=== PATIENT | male | born 1960 | race Caucasian/White ===

== ENCOUNTER 2019-11-02 15:49 | Emergency (ER) | payer OTHER, SELFPAY ==
[2019-11-02 15:54] VITALS: BP 105/57; PULSE 101; RESP 18; TEMP 37.1; O2SAT 98
--- NOTE | 2019-11-02 16:31 | ED.GENADULT ---
HPI - General Adult General Chief complaint: Wound/Laceration Stated complaint: WOUND TO ABD Time Seen by Provider: 11/02/19 16:51 Source: patient Mode of arrival: ambulatory Limitations: no limitations History of Present Illness HPI narrative: 59-year-old male patient presents to the [facility] with complaints of a wound to his right abdomen for the past 2 to 3 days. Patient states he thinks he might have gotten bitten by something. Patient states it started off as a small pimple and is gotten increasingly bigger. Patient states it is tender to the touch. Patient states he tried to open it himself and did get a little drainage out of it yesterday with some tweezers. Patient states he is also tried using a Coke bottle to make an vacuum to suck it out but it did not work. Patient denies any fevers, chest pain, shortness of breath or abdominal pain. Related Data Allergies Allergy/AdvReac Type Severity Reaction Status Date / Time No Known Allergies Allergy Mild Verified 09/22/10 08:23 Review of Systems Review of Systems: Narrative: CONSTITUTIONAL: Denies fever, chills, or sweats. EYES: Denies visual changes, redness, or discharge. ENT: Denies rhinorrhea, congestion, sore throat, or otalgia. CARDIOVASCULAR: Denies chest pain, palpitations, or edema. RESPIRATORY: Denies cough or dyspnea. GASTROINTESTINAL: Denies abdominal pain, nausea, vomiting, or diarrhea. GENITOURINARY: Denies dysuria or hematuria. SKIN: Denies rash or itching. Positive wound to right abdomen x2 to 3 days MUSCULOSKELETAL: Denies back pain, joint pain, or myalgia. NEUROLOGIC: Denies headache, numbness, or weakness. PSYCHIATRIC: Denies anxiety or depression. PMFSH Social History Social History Gender identity (if verbalized by the patient): Male Comments At the time of my signature I agree with nursing past medical history, surgical, social, and family history. There is no relevant family history pertinent to the presenting complaint. Exam Narrative: Exam Narrative: GENERAL: Well-appearing, well-nourished, and in no acute distress. HEAD: Normocephalic, atraumatic. EYES: PERRLA and EOMI. ENT: Nares clear, no rhinorrhea or epistaxis. Mucous membranes moist. NECK: Supple. No lymphadenopathy CHEST: Clear to auscultation. No respiratory distress. HEART: Regular rate and rhythm. No murmur heard. Normal peripheral pulses. ABDOMEN: Soft, nontender, nondistended, normal active bowel sounds. EXTREMITIES: Normal range of motion. No edema. SKIN: Warm, dry, no rash. Patient has a small abscess noted to the right lower abdomen towards the hip area. There is some slight warmth and some surrounding erythema measuring approximately 4 cm. There is a round center that is scabbed over that appears yellow that measures approximately 0.5. No active drainage at this time. NEURO: No focal deficits. Alert and oriented x3. Course Vital Signs Vital signs: Vital Signs Temperature 37.1 C 11/02/19 15:54 Pulse Rate 101 H 11/02/19 15:54 Respiratory Rate 18 11/02/19 15:54 Blood Pressure 105/57 L 11/02/19 15:54 Pulse Oximetry 98 11/02/19 15:54 Temperature 37.1 C 11/02/19 15:54 Pulse Rate 101 H 11/02/19 15:54 Respiratory Rate 18 11/02/19 15:54 Blood Pressure 105/57 L 11/02/19 15:54 Pulse Oximetry 98 11/02/19 15:54 Vital signs reviewed. Procedures Abscess I/D abdomen: Date of Incision: 11/02/19 Side (if applicable): right Sedation/analgesia: other Local Anesthetic: lidocaine 1% Amount of anesthesia used (mL): 2 Technique: incised with #11 blade Irrigation: Yes Packing used?: none I&D Results: Nothing Abcess I&D Additional Comments: The procedure was explained and verbal consent is obtained. The wound was anesthetized with 2ml of 1% lidocaine with good anesthesia. Sterile drape and prep are done. The fluctuant center was incised wi
[2019-11-02 18:03] VITALS: BP 130/86; PULSE 78; RESP 18; TEMP 36.9; O2SAT 100
--- NOTE | 2019-11-03 16:00 | PCCCNOTE ---
Called ED visit to [facility]. Spoke with Eliseo. Confirmation # [id number]
--- NOTE | 2019-11-03 16:01 | PCCCNOTE ---
Clinicals faxed to [place] 11/03/2019 at [phone]
== END 2019-11-02 18:04 | disposition home or self-care (01) ==
PROVIDERS: Emergency Provider Nurse Practitioner Family
DX: L02.211 Cutaneous abscess of abdominal wall (principal)
CPT/HCPCS: 10060; 99283

== ENCOUNTER 2022-02-24 10:56 | Outpatient (CLI) | payer OTHER, SELFPAY ==
--- NOTE | ~2022-02-24 | XR_ITS ---
XR shoulder LT min 2V 02/24/2022 12:29 Indication: Left shoulder pain Procedure: 4 views left shoulder Comparison: No prior studies for comparison. Findings: There is mild polyarticular osteoarthritis of the left shoulder. No fracture or traumatic m alalignment. Visualized lung parenchyma is unremarkable. Osteopenia. Impression: 1: Mild polyarticular osteoarthritis of the left shoulder. Reviewed, dictated and finalized at location A. Impression: 1: Mild polyarticular osteoarthritis of the left shoulder.
--- NOTE | ~2022-02-24 | XR_ITS ---
XR cervical spine 4-5V 02/24/2022 12:29 Indication: Neck pain Procedure: 4 view cervical spine Comparison: 04/26/2004 Findings: There is reversal of cervical lordosis, likely due to muscle spasm or patient positioning. There is degenerative anterolisthesis at C2-3. There is degenerative disc disease at C3-4 through C6- 7. No prevertebral soft tissue swelling. There is moderate multilevel uncinate hypertrophy. Lung apic es are unremarkable. Odontoid process is normal. Lateral masses normally aligned. Impression: 1: Moderate cervical spondylosis. Reviewed, dictated and finalized at location B. Impression: 1: Moderate cervical spondylosis.
--- NOTE | ~2022-02-24 | XR_ITS ---
XR shoulder RT min 2V 02/24/2022 12:29 Indication: Right shoulder pain Procedure: 4 views right shoulder Comparison: 04/26/2004 Findings: There is mild polyarticular osteoarthritis of the right shoulder. Osteopenia. Visualized robbie ng parenchyma is unremarkable. No fracture or traumatic malalignment. Impression: 1: Mild polyarticular osteoarthritis of the right shoulder. Reviewed, dictated and finalized at location A. Impression: 1: Mild polyarticular osteoarthritis of the right shoulder.
--- NOTE | ~2022-02-24 | XR_ITS ---
EXAMINATION: XR chest 2V 02/24/2022 12:28 INDICATION: Tobacco use. Neck and shoulder pain. PROCEDURE: 2 view chest COMPARISON: No prior studies for comparison. FINDINGS: The lungs are clear. The cardiomediastinal silhouette is within normal limits. There are no pleural effusions. There is no pneumothorax suspected. Prominent right nipple shadow. IMPRESSION: 1: NO ACUTE CARDIOPULMONARY DISEASE. Reviewed, dictated and finalized at location A.
--- NOTE | ~2022-02-24 | XR_ITS ---
EXAM: XR hand LT min 3V, XR wrist RT min 3V, XR wrist LT min 3V, XR hand RT min 3V DATE: 02/24/2022 12:29 HISTORY: TOBACCO, NECK PAIN, TISHA SHOULDER PAIN, TISHA HAND/WRIST PAIN . COMPARISON: None available. FINDINGS: Osteoarthritic narrowing in multiple PIP joints of the fingers. Moderate narrowing, sclero sis, and osteophytosis in the bilateral second and third MCP joints, with hooklike osteophytes. Mild degenerative change at the radiocarpal articulations, triscaphe joints, and trapeziometacarpal joints bilaterally. No fracture or dislocation. Partial right fourth distal phalange amputation. IMPRESSION: Scattered arthritic changes in the hands and wrists, most notably in the bilateral second and third MCP joints, which may be secondary to post traumatic arthritis or hemachromatosis. Reviewed, dictated and finalized at [facility]. IMPRESSION: Scattered arthritic changes in the hands and wrists, most notably i n the bilateral second and third MCP joints, which may be secondary to post tra umatic arthritis or hemachromatosis. IMPRESSION: Scattered arthritic changes in the hands and wrists, most notably i n the bilateral second and third MCP joints, which may be secondary to post tra umatic arthritis or hemachromatosis. IMPRESSION: Scattered arthritic changes in the hands and wrists, most notably i n the bilateral second and third MCP joints, which may be secondary to post tra umatic arthritis or hemachromatosis.
[2022-02-24 12:04] LABS: Hematocrit 43.1 % (42.0-52.0); Hemoglobin 14.1 g/dL (14.0-18.0); Mean Corpuscular HGB Conc 32.7 g/dl (32-36); Mean Corpuscular Hemoglobin 30.9 pg (26-34); Mean Corpuscular Volume 94.3 fl (80-100); Mean Platelet Volume 9.4 fl (7.4-10.4); Platelet Count Result 391 k/mm3 (150-375); Red Blood Count 4.57 M/mm3 (4.6-6.20); Red Cell Distribution Width 12.5 % (11.5-14.5); White Blood Count 7.4 K/mm3 (4.5-10.0)
[2022-02-24 12:09] LABS: Appearance Urine Slightly Cloudy (Clear); Bilirubin Urine 1+ (Negative); Blood Urine Trace-lysed (Negative); Color Urine Yellow (Yellow); Glucose Urine UA Negative (Negative); Ketones Urine Trace mg/dL (Negative); Leukocyte Esterase Ur 1+ LEU/UL (NEGATIVE); Nitrate Urine Negative (Negative); Protein Urine Negative (Negative); Specific Grav Ur 1.025 (1.001-1.035)
[2022-02-24 12:27] LABS: Alanine Aminotransferase 18 U/L (6-50); Albumin Level 4.2 g/dL (3.5-5.1); Alkaline Phosphatase 73 U/L (38-126); Anion Gap 7 mmol/L (8-16); Aspartate Amino Transferase 30 U/L (17-59); Bilirubin,Total 0.2 mg/dL (0.2-1.3); Blood Urea Nitrogen 15 mg/dL (9-20); Calcium 8.8 mg/dL (8.4-10.2); Carbon Dioxide 26 mmol/L (22-30); Chloride 104 mmol/L (98-107); Cholesterol 190 mg/dL (0-200); Estimated Glomerular Filt Rate > 60; Glucose 116 mg/dL (65-110); HDL Direct 63 mg/dL; Potassium 3.7 mmol/L (3.4-5.0); Sodium 137 mmol/L (137-145); Triglycerides 106 mg/dL (<150)
[2022-02-24 12:27] LABS: Creatinine Urine 162.8 mg/dL
[2022-02-24 12:31] LABS: MALB Creatinine Ratio 7.1 mg/g (0-30); Microalbumin Urine Random 11.6 mg/L (0-16.7)
[2022-02-24 12:33] LABS: Mucus Urine Rare /lpf; WBC Urine 16-20 /hpf (0-3)
[2022-02-24 12:43] LABS: Hemoglobin A1C 5.4 % (<5.7)
[2022-02-24 12:45] LABS: LDL Cholesterol Direct 97 mg/dL
[2022-02-24 12:56] LABS: Add Urine Microscopic? YES
[2022-02-24 12:58] LABS: HIV 1/2 Ab P24 Ag Result Negative (Negative)
[2022-02-24 12:58] LABS: Prostate Specific Antigen 3.3 ng/mL (< OR = 4.0)
[2022-02-24 13:02] LABS: Free T4 Free Thyroxine 1.43 ng/mL (0.78-2.19); Vitamin D 25 Hydroxy 37.6 ng/mL
[2022-02-24 13:22] LABS: Erythrocyte Sedimentation Rate 11 mm/hr (0-20)
[2022-02-24 15:25] LABS: Rapid Plasma Reagin Non-Reactive (NonReactive)
[2022-02-24 23:37] LABS: Hepatitis B Surface Antigen Negative (Negative)
[2022-02-24 23:38] LABS: HAV RESULT Negative (Negative); Hepatitis B Core IgM Result Negative (Negative)
[2022-02-24 23:53] LABS: Hepatitis C Virus Antibody Reactive (Negative)
[2022-02-26 12:21] LABS: NIL 0.01 IU/mL; Quantiferon TB Plus, 1T NEGATIVE (NEGATIVE)
[2022-02-27 17:08] LABS: Hepatitis C RNA, Quant PCR <15 IU/mL
== END 2022-02-24 10:57 | disposition home or self-care (01) ==
LOC: ANHLAB 11:02
PROVIDERS: Visit Provider Emergency Medicine
DX: J45.909 Unspecified asthma, uncomplicated (principal); M19.90 Unspecified osteoarthritis, unspecified site; M47.892 Other spondylosis, cervical region; R91.8 Other nonspecific abnormal finding of lung field; M19.041 Primary osteoarthritis, right hand; M19.042 Primary osteoarthritis, left hand; M19.031 Primary osteoarthritis, right wrist; M19.032 Primary osteoarthritis, left wrist; M19.011 Primary osteoarthritis, right shoulder; M19.012 Primary osteoarthritis, left shoulder
CPT/HCPCS: 36415; 71046; 72050; 73030; 73110; 73130; 80053; 80061; 80074; 81001; 82043; 82248; 82306; 83036; 84153; 84439; 84443; 85027; 85652; 86038; 86430; 86480; 86592; 86703; 87086; 87491; 87522; 87591; G0432

== ENCOUNTER 2022-02-27 15:01 | Outpatient (CLI) | payer OTHER, SELFPAY ==
--- NOTE | ~2022-02-27 | US_ITS ---
EXAMINATION: US carotid duplex BI DATE: 02/27/2022 15:50 INDICATION: Carotid bruit. TECHNIQUE: Grayscale, color Doppler, and pulsed Doppler images of the cervical carotid arteries were obtained. The degree of vessel stenosis is placed in one of the following categories: normal, <50%, 5 0-69%, >=70% but less than near-occlusion, near-occlusion, or total occlusion. Note that percent sten osis relative to normal distal artery lumen diameter is indirectly measured from velocity measurement s as described by Jay, et al. Radiology 2003; [id number]. COMPARISON: None. FINDINGS: RIGHT: The right common carotid artery (CCA) peak systolic velocity (PSV) is 86 cm/s. The right internal car otid artery (ICA) PSV is 324 cm/s. The right ICA end-diastolic velocity (EDV) is 135 cm/s. The right ICA/CCA PSV ratio is 3.8. Grayscale and color Doppler images yield an estimate of >=70% diameter redu ction from plaque in the ICA. There is antegrade flow in the right vertebral artery. LEFT: The left CCA PSV is 91 cm/s. The left ICA PSV is 115 cm/s. The left ICA EDV is 54 cm/s. The left ICA/ CCA PSV ratio is 1.3. Grayscale and color Doppler images yield an estimate of <50% diameter reduction from plaque in the ICA. There is antegrade flow in the left vertebral artery. IMPRESSION: 1. 50-69% stenosis in the right internal carotid artery. 2. <50% stenosis in the left internal carotid artery. Reviewed, dictated and finalized at location B.
== END 2022-02-27 15:02 | disposition home or self-care (01) ==
LOC: ANHIMG 15:06
PROVIDERS: PCP Emergency Medicine; Visit Provider Emergency Medicine
DX: R09.89 Other specified symptoms and signs involving the circulatory and respiratory systems (principal); I65.23 Occlusion and stenosis of bilateral carotid arteries
CPT/HCPCS: 93880

== ENCOUNTER 2022-04-22 11:08 | Outpatient (CLI) | payer OTHER, SELFPAY ==
[2022-04-22 11:33] LABS: Hematocrit 44.1 % (42.0-52.0); Hemoglobin 14.5 g/dL (14.0-18.0); Mean Corpuscular HGB Conc 32.9 g/dl (32-36); Mean Corpuscular Hemoglobin 30.9 pg (26-34); Mean Corpuscular Volume 93.8 fl (80-100); Mean Platelet Volume 9.7 fl (7.4-10.4); Platelet Count Result 346 k/mm3 (150-375); White Blood Count 7.3 K/mm3 (4.5-10.0)
[2022-04-22 12:09] LABS: SARS-CoV-2 RNA PCR Positive
== END 2022-04-22 11:09 | disposition home or self-care (01) ==
LOC: ANHLAB 11:11
PROVIDERS: PCP Emergency Medicine; Visit Provider Emergency Medicine
DX: R09.89 Other specified symptoms and signs involving the circulatory and respiratory systems (principal); R05.9 Cough, unspecified; U07.1 COVID-19
CPT/HCPCS: 36415; 85027; U0003; U0005

== ENCOUNTER 2022-05-02 06:09 | Emergency (ER) | payer OTHER, SELFPAY ==
[2022-05-02 06:16] VITALS: BP 135/84; PULSE 86; RESP 18; TEMP 36.2; O2SAT 100
[2022-05-02 06:39] LABS: Appearance Urine Clear (Clear); Bilirubin Urine Negative (Negative); Blood Urine Trace-lysed (Negative); Color Urine Yellow (Yellow); Glucose Urine UA Negative (Negative); Ketones Urine Negative (Negative); Leukocyte Esterase Ur Trace LEU/UL (Negative); Nitrate Urine Negative (Negative); Protein Urine Negative (Negative); Urobilinogen Urine 0.2 mg/dL (<2.0); pH Urine 6.5 (5.0-9.0)
[2022-05-02 06:44] LABS: RBC Urine 0-2 /hpf (0-2); WBC Urine 0-3 /hpf
[2022-05-02 06:48] LABS: Add Urine Microscopic? YES
[2022-05-02 07:12] LABS: Influenza A QL RT-PCR Negative (Negative); Influenza B QL RT-PCR Negative (Negative); SARS-CoV-2 RNA PCR Positive
--- NOTE | 2022-05-02 07:24 | ED.GENADULT ---
HPI - General Adult General Chief complaint: Unspecified Stated complaint: I need a covid test and urine sample for my doc Time Seen by Provider: 05/02/22 06:23 Source: patient and RN notes reviewed Mode of arrival: ambulatory Limitations: no limitations History of Present Illness HPI narrative: This is a 61 year old male who presents for outpatient testing for covid test and urinalysis. Patient was found to be positive for COVID on 04/22/2022. He states he was told by his PCP to get a repeat test to see if he is still positive. He denies any symptoms. He denies fever, chills, body aches, cough, sore throat, shortness of breath. He states he was not symptomatic at time of testing either. He states his doctor is going to prescribe him medication if he still positive. He also reports he was told to get repeat urinalysis to see if he had blood in his urine. He denies dysuria, gross hematuria, abdominal pain, nausea or vomiting. He did not want to wait for outpatient lab to open up. Related Data Allergies Allergy/AdvReac Type Severity Reaction Status Date / Time gabapentin Allergy Other Verified 05/02/22 06:19 Review of Systems Review of Systems: CONSTITUTIONAL: Denies fever, chills, or sweats. EYES: Denies visual changes, redness, or discharge. ENT: Denies rhinorrhea, congestion, sore throat, or otalgia. CARDIOVASCULAR: Denies chest pain, palpitations, or edema. RESPIRATORY: Denies cough or dyspnea. GASTROINTESTINAL: Denies abdominal pain, nausea, vomiting, or diarrhea. GENITOURINARY: Denies dysuria or hematuria. SKIN: Denies rash or itching. MUSCULOSKELETAL: Denies back pain, joint pain, or myalgia. NEUROLOGIC: Denies headache, numbness, or weakness. PSYCHIATRIC: Denies anxiety or depression. PMFSH Past Medical History Medical History (Updated 05/02/22 @ 07:38 by Yazmin Fatima MD) Carotid artery stenosis Social History Social History (Updated 05/02/22 @ 07:38 by Yazmin Fatima MD) Smoking packs per day: 1 Smoking cigarettes per day: 20.0 Smoking status: Current every day smoker Gender identity (if verbalized by the patient): Male Exam Narrative: GENERAL: Well-appearing, well-nourished, and in no acute distress. HEAD: Normocephalic, atraumatic EYES: EOMI, conjunctiva clear without discharge RESPIRATORY: No respiratory distress, Airway patent, Respirations non-labored, Clear to auscultation without rales, rhonchi or wheeze HEART: Regular rate and rhythm. No murmur heard. Normal peripheral pulses. ABDOMEN: Soft, nontender, nondistended, normal active bowel sounds. No masses. No rebound or guarding, No organomegaly. EXTREMITIES: No edema, normal strength with full range of motion. SKIN: Warm, dry, normal color without rash NEURO: Alert and oriented x3. CN 2-12 grossly intact. No focal deficits. PSYCH: Normal mood and affect. Course Reevaluation(s) Reevaluation #1: I discussed with patient that his covid is still positive. He is asymptomatic so no medication prescribed. He also well past 5 days positive. He has also been notified that no hematuria on this urinalysis. I stressed for patient to speak to his PCP about reasoning for repeat covid test if he is asymptomatic. I also discussed smoking cessation. Date: 05/02/22 Time: 07:15 Vital Signs Vital signs: Vital Signs Temperature 97.2 F L 05/02/22 06:16 Pulse Rate 86 05/02/22 06:16 Respiratory Rate 18 05/02/22 06:16 Blood Pressure 135/84 05/02/22 06:16 Pulse Oximetry 100 05/02/22 06:16 Oxygen Delivery Room Air 05/02/22 06:16 Temperature 97.2 F L 05/02/22 06:16 Pulse Rate 86 05/02/22 06:16 Respiratory Rate 18 05/02/22 06:16 Blood Pressure 135/84 05/02/22 06:16 Pulse Oximetry 100 05/02/22 06:16 Oxygen Delivery Room Air 05/02/22 06:16 Medical Decision Making Vital Signs Vital Signs: Vital Signs Temperature 97.2 F L 05/02/22 06:16 Pulse Rate 86 05/02/22 06:16 Respiratory Ra
== END 2022-05-02 07:35 | disposition home or self-care (01) ==
PROVIDERS: Emergency Medicine; Emergency Provider General Practice; PCP Emergency Medicine
DX: U07.1 COVID-19 (principal); F17.210 Nicotine dependence, cigarettes, uncomplicated
CPT/HCPCS: 81001; 87636; 99283

== ENCOUNTER 2022-06-26 09:54 | Outpatient (CLI) | payer OTHER, SELFPAY ==
--- NOTE | ~2022-06-26 | XR_ITS ---
Right Hand Technique: PA, oblique, and lateral views were obtained. Clinical History: Pain COMPARISON: 02/24/2022 Findings: No acute fracture or dislocation is seen. Stable joint space narrowing of the second and th ird metacarpophalangeal joints with small osteophytes. Remaining joint spaces are preserved. Stable p artially dilatation of the distal fourth digit. Soft tissues are unremarkable. Impression: Stable degenerative changes, particularly at the second and third metacarpophalangeal joints. Correla te for osteoarthritis versus any possibility of hemachromatosis. Reviewed, dictated and finalized at location M. PHONE ASSEMBLER Impression: Stable degenerative changes, particularly at the second and third metacarpophal angeal joints. Correlate for osteoarthritis versus any possibility of hemachrom atosis.
== END 2022-06-26 09:55 | disposition home or self-care (01) ==
PROVIDERS: PCP Emergency Medicine; Visit Provider Emergency Medicine
DX: M79.641 Pain in right hand (principal)
CPT/HCPCS: 73130

== ENCOUNTER 2022-06-30 12:45 | Outpatient (CLI) | payer OTHER, SELFPAY ==
--- NOTE | ~2022-06-30 | MM_ITS ---
EXAMINATION: MM diagnostic luna BI w gabriela HISTORY: Bilateral breast pain TECHNIQUE: MLO and CC Tomosynthesis of each breast. Coned compression left MLO view with nipple in pr ofile.. CAD analysis was submitted and interpreted. COMPARISON: None BREAST PARENCHYMAL COMPOSITION: The breasts are almost entirely fatty. FINDINGS: No suspicious mass or architectural distortion, malignant calcification, skin thickening or retraction is detected. IMPRESSION: 1. No mammographic evidence of malignancy 2. No recommendation BI-RADS Category 1: Negative Reviewed, dictated and finalized at location A. ER INTERN
== END 2022-06-30 12:46 | disposition home or self-care (01) ==
PROVIDERS: PCP Emergency Medicine; Visit Provider Emergency Medicine
DX: N64.4 Mastodynia (principal); M79.641 Pain in right hand
CPT/HCPCS: 77062; 77066; G0279

== ENCOUNTER 2022-10-29 13:16 | Outpatient (CLI) | payer OTHER, SELFPAY ==
--- NOTE | ~2022-10-29 | XR_ITS ---
EXAMINATION: XR chest 2V DATE: 10/29/2022 13:34 INDICATION: Chronic obstructive pulmonary disease. TECHNIQUE: Frontal and lateral views of the chest were obtained. COMPARISON: Chest 2 views 02/24/2022 FINDINGS: The chest demonstrates clear lungs without pneumonia, pleural effusion, or pneumothorax. Th e heart size is normal. IMPRESSION: 1. No acute cardiopulmonary disease. Reviewed, dictated and finalized at location A.
[2022-10-29 14:43] LABS: Hematocrit 40.7 % (42.0-52.0); Hemoglobin 13.5 g/dL (14.0-18.0); Mean Corpuscular HGB Conc 33.2 g/dl (32-36); Mean Corpuscular Hemoglobin 31.3 pg (26-34); Mean Corpuscular Volume 94.4 fl (80-100); Mean Platelet Volume 9.7 fl (7.4-10.4); Platelet Count Result 382 k/mm3 (150-375); Red Blood Count 4.31 M/mm3 (4.6-6.20); Red Cell Distribution Width 13.1 % (11.5-14.5); White Blood Count 10.1 K/mm3 (4.5-10.0)
[2022-10-29 14:52] LABS: Alanine Aminotransferase 23 U/L (6-50); Albumin Level 4.5 g/dL (3.5-5.1); Alkaline Phosphatase 61 U/L (38-126); Anion Gap 4 mmol/L (8-16); Aspartate Amino Transferase 36 U/L (17-59); Bilirubin,Total 0.4 mg/dL (0.2-1.3); Blood Urea Nitrogen 19 mg/dL (9-20); Calcium 8.6 mg/dL (8.4-10.2); Carbon Dioxide 26 mmol/L (22-30); Chloride 104 mmol/L (98-107); Estimated Glomerular Filt Rate > 60; Glucose 77 mg/dL (65-110); Potassium 4.3 mmol/L (3.4-5.0); Sodium 134 mmol/L (137-145)
[2022-10-29 15:23] LABS: Thyroid Stimulating Hormone 0.558 uIU/mL (0.465-4.680)
[2022-10-29 16:04] LABS: Free T4 Free Thyroxine 1.11 ng/mL (0.78-2.19)
[2022-11-01 16:43] LABS: Amphetamines NEGATIVE ng/mL (<500); Barbiturates NEGATIVE ng/mL (<300); Benzodiazepines NEGATIVE ng/mL (<100); Cocaine Metabolite NEGATIVE ng/mL (<150); Marijuana Metabolite POSITIVE ng/mL (<20); Methadone Metabolite NEGATIVE ng/mL (<100); Opiates POSITIVE ng/mL (<100); Oxidant NEGATIVE mcg/mL (<200); pH 5.7 (4.5-9.0)
[2022-11-09 02:02] LABS: Lead, Blood 3.8 mcg/dL (<3.5)
[2022-11-11 14:37] LABS: Collection Sample Venous
== END 2022-10-29 13:17 | disposition home or self-care (01) ==
PROVIDERS: PCP Emergency Medicine; Visit Provider Emergency Medicine
DX: Z00.00 Encounter for general adult medical examination without abnormal findings (principal); J44.9 Chronic obstructive pulmonary disease, unspecified; Z77.098 Contact with and (suspected) exposure to other hazardous, chiefly nonmedicinal, chemicals
CPT/HCPCS: 36415; 71046; 80053; 80307; 82607; 83655; 84439; 84443; 85027

== ENCOUNTER 2023-12-29 16:51 | Emergency (ER) | payer OTHER, SELFPAY ==
--- NOTE | ~2023-12-29 | XR_ITS ---
XR forearm RT 2V Ordering provider: Mora Waddell PA-C History: . wound, trauma . Comparison: None. FINDINGS: BONES: No acute fracture or dislocation. JOINT SPACES: Normal. SOFT TISSUES: Normal. IMPRESSION: No acute osseous abnormality right forearm. Reviewed, dictated and finalized at location A.
[2023-12-29 17:16] VITALS: BP 112/69; PULSE 88; RESP 16; TEMP 36.6; O2SAT 98
--- NOTE | 2023-12-29 21:30 | PC.NURSE ---
Patient comes to the triage desk and states he does not need our services anymore. I've been waiting too long. I cut it open myself and have my sister coming to get me .
--- NOTE | 2023-12-29 21:49 | PC.NURSE ---
Patient called twice without answer.
--- NOTE | 2023-12-29 22:13 | PC.NURSE ---
Patient comes back in the ER and states somebody better work on me quick. He states he was outside and never heard anyone call his name. Informed his name was called twice at [id number]. Patient states well I don't know if my sister is coming now, so I want to be added to the list again.
--- NOTE | 2023-12-29 22:50 | ED.UPPEXIN ---
HPI - Extremity Injury (Upper) General Chief Complaint: Extremity Injury, Upper Stated Complaint: right lower arm injury/spider bite? Time Seen by Provider: 12/29/23 21:47 History of Present Illness HPI narrative: 63-year-old male with reported history of hypertension and hepatitis-C presents to the emergency department for right arm injury. Patient states 5 days ago he was on a ladder about 4 ft up when he slipped on a piece of siding on the ladder and fell backwards. States he hit his head but did not lose consciousness. He denies any pain or injury. He states when the fall happened he cut his right arm on a piece of siding. Since then it has become more painful and swollen and is now draining pus. He denies fever or other injuries acquired. He is not anticoagulated. Related Data Allergies Allergy/AdvReac Type Severity Reaction Status Date / Time gabapentin Allergy Other Verified 12/29/23 16:51 Review of Systems Review of Systems: All systems reviewed & are unremarkable except as noted in HPI and below PMFSH Past Medical History Medical History Carotid artery stenosis Social History Social History Smoking packs per day: 1 Smoking cigarettes per day: 20.0 Smoking status: Current every day smoker Gender identity (if verbalized by the patient): Male Exam Narrative: GENERAL: Well-appearing, well-nourished, and in no acute distress. HEAD: Normocephalic, atraumatic. EYES: PERRLA and EOMI. ENT: Nares clear, no rhinorrhea or epistaxis. Mucous membranes moist. NECK: No midline cervical spinous tenderness, step-offs or deformities BACK: no thoracolumbar spinous tenderness, step-offs or deformities CHEST: Clear to auscultation. No respiratory distress. HEART: Regular rate and rhythm. No murmur heard. Normal peripheral pulses. EXTREMITIES: approximately 2 cm area of fluctuance with overlying erythema to the dorsum of the right forearm, actively draining purulent drainage. Tender to palpation. No crepitus. No tenderness remainder of extremity. Full range of motion of extremity. Radial pulse 2 +. Sensation intact. No tenderness remainder of upper lower extremities. SKIN: Warm, dry, no rash. NEURO: No focal deficits. Alert and oriented x3 Course Vital Signs Vital signs: Vital Signs Temperature 97.9 F 12/29/23 17:16 Pulse Rate 88 12/29/23 17:16 Respiratory Rate 16 12/29/23 17:16 Blood Pressure 112/69 12/29/23 17:16 Pulse Oximetry 98 12/29/23 17:16 Temperature 97.9 F 12/29/23 17:16 Pulse Rate 70 12/29/23 23:05 Respiratory Rate 18 12/29/23 23:05 Blood Pressure 112/69 12/29/23 17:16 Pulse Oximetry 100 12/29/23 23:05 Procedures Abscess I/D upper extremity: Date of Incision: 12/29/23 Time of Incision: 23:50 Side (if applicable): right Local Anesthetic: lidocaine 1% and with epi Amount of anesthesia used (mL): 3 Technique: incised with #11 blade Amount of fluid expressed (mL): 2 Packing used?: none I&D Results: Pus MDM - Extremity Injury (Upper) MDM Narrative Medical decision making narrative: 63-year-old male presents to emergency department for a abscess to his right forearm. He obtained an injury 5 days ago after falling 4 ft off of a ladder. He did hit his head but did not lose consciousness. He is not anticoagulated. I did offer to obtain CT head and cervical spine given the mechanism of injury, however patient declined. X-ray forearm shows no acute osseous abnormality, no foreign body. CBC with mild leukocytosis of 10.3. CRP mildly elevated at 2.1. Abscess I&D with parents and sanguinous drainage. No packing placed given small cavity. Dressing placed. Patient was started on Bactrim and given a PCP referral. Tdap also updated. Strict ED return precautions and wound care d
[2023-12-29] MEDS: TETANUS,DIPHTHERIA,AC PERTUSSIS ADULT (0.5 ML) BOOSTRIX IM (22:55)
[2023-12-29] MEDS: HYDROcodone/acetaminophen (*CRX) 5-325 MG TABLET 1 TAB PO (22:55)
[2023-12-29 23:05] VITALS: PULSE 70; RESP 18; O2SAT 100
[2023-12-29 23:09] LABS: Basophils Absolute Auto 0.1 K/mm3 (0.0-0.1); Eosinophils Absolute Auto 0.7 K/mm3 (0-0.3); Eosinophils Percent Auto 6.4 % (0-4.4); Hematocrit 44.1 % (42.0-52.0); Hemoglobin 14.5 g/dL (14.0-18.0); Immature Granulocyte Absolute 0.02 K/mm3 (0.00-0.031); Immature Granulocyte Percent A 0.2 % (0-0.5); Lymphocytes Absolute Auto 2.77 K/mm3 (0.9-3.2); Lymphocytes Percent Auto 26.9 % (18.3-44.2); Mean Corpuscular HGB Conc 32.9 g/dl (32-36); Mean Corpuscular Hemoglobin 30.7 pg (26-34); Mean Corpuscular Volume 93.2 fl (80-100); Mean Platelet Volume 9.6 fl (7.4-10.4); Monocytes Absolute Auto 0.8 K/mm3 (0.1-0.6); Monocytes Percent Auto 7.5 % (2.6-8.5); Platelet Count Result 391 k/mm3 (150-375); Red Blood Count 4.73 M/mm3 (4.6-6.20); Red Cell Distribution Width 12.8 % (11.5-14.5); White Blood Count 10.3 K/mm3 (4.5-10.0)
[2023-12-29 23:22] LABS: Anion Gap 7 mmol/L (4-12); Blood Urea Nitrogen 20 mg/dL (9-20); CRP 2.1 mg/dL (<1.0); Calcium 8.6 mg/dL (8.4-10.2); Carbon Dioxide 30 mmol/L (22-30); Chloride 97 mmol/L (98-107); Estimated CRCL calculation 65 ml/min; Estimated Glomerular Filt Rate > 60; Glucose 98 mg/dL (65-110); Potassium 3.8 mmol/L (3.4-5.0); Sodium 134 mmol/L (137-145)
[2023-12-29 23:52] LABS: Erythrocyte Sedimentation Rate 20 mm/hr (0-20)
[2023-12-30] MEDS: SULFAMETHOXAZOLE/TRIMETHOPRIM 800/160 MG DS TABLET 1 TAB PO
[2023-12-30 00:02] VITALS: BP 155/97; PULSE 72; RESP 14; TEMP 37; O2SAT 98
== END 2023-12-30 00:05 | disposition home or self-care (01) ==
PROVIDERS: Emergency Provider Physician Assistant; PCP Emergency Medicine
DX: L02.413 Cutaneous abscess of right upper limb (principal); Z23 Encounter for immunization; I10 Essential (primary) hypertension; I65.29 Occlusion and stenosis of unspecified carotid artery; F17.210 Nicotine dependence, cigarettes, uncomplicated; Z86.19 Personal history of other infectious and parasitic diseases; W11.XXXA Fall on and from ladder, initial encounter
CPT/HCPCS: 10060; 36415; 73090; 80048; 85025; 85652; 86140; 90471; 90715; 99283; A9270

== ENCOUNTER 2024-07-31 21:15 | Inpatient (IN) | payer MEDICARE, MEDICAID, OTHER, SELFPAY ==
--- NOTE | ~2024-07-31 | XR_ITS ---
EXAMINATION: XR chest 1V portable Exam Date/Time: 07/31/2024 21:30 CDT HISTORY: sob cp Comparison: 10/29/2022. RESULT: Lines, tubes, and devices: None. Lungs and pleura: Clear. Cardiomediastinal silhouette: Stable. Other: No acute osseous or upper abdominal finding. IMPRESSION: No acute cardiopulmonary process. Reviewed, dictated and finalized at location K.
[2024-07-31 21:10] VITALS: BP 158/101; PULSE 90; RESP 16; TEMP 36.6; O2SAT 98
[2024-07-31 21:15] VITALS: PULSE 90
--- NOTE | 2024-07-31 21:16 | ECG_ITS ---
Test Date: 2024-07-31 21:21:07 Measurements Intervals [place] Rate: 83 P: 75 NV: 142 QRS: 43 QRSD: 96 T: 83 QT: 368 QTc: 435 Interpretive Statements SINUS RHYTHM LEFT ATRIAL ENLARGEMENT [-0.15mV P WAVE IN V1/V2] INCOMPLETE RIGHT BUNDLE BRANCH BLOCK [90+ ms QRS DURATION, TERMINAL R IN V1/V2, 40+ ms S IN I/aVL/V4/V5/V6] NONSPECIFIC ST AND T WAVE ABNORMALITY No previous ECG available for comparison Electronically Signed On 08-01-2024 14:37:22 CDT by Petra Leslie M.D.
[2024-07-31 21:27] VITALS: BP 158/101; PULSE 81; RESP 15; TEMP 36.6; O2SAT 98
--- OUTSIDE RECORDS SUMMARY | 2024-07-31 21:41 | XMS_ITS | Clinical Summary ---
Author Organization [facility] [place] Address [address] [place] [id number] Care Team Providers Care Rn Intern Name Role Phone None, Provider MD Primary Care Provider Unavaila ble Allergies Active Allergy Reactions Criticality Noted Date Comments Gabapentin Other (see comment) 05/18/2019 Joint pain Medications lisinopril 20 MG tablet Take 20 mg by mouth daily. Active aspirin 81 MG chewable tablet Chew 81 mg by mouth daily. Active Family History Medical History Relation Comments Hypertension Father Heart Disease Mother Hypertension Mother Relation Status Comments Father Mother Social History Tobacco Use Types Packs/Day Years Used Date Smoking Tobacco: Every Day Cigarettes Smokeless Tobacco: Never Alcohol Use Standard Drinks/Week Comments Yes 0 (1 standard drink = 0.6 oz pur e alcohol) AUDIT-C Answer Date Recorded Frequency of Alcohol Consumption Never 05/18/2019 Average Number of Drinks Not on file 019 Frequency of Binge Drinking Not on file 04/24 Sex and Gender Information Value Date Recorded Sex Assigned at Not on file Legal Sex Male 7:26 PM CDT Gender Identity Not on file Sexual Orientation Not on file Last Filed Vital Signs Vital Sign Reading Time Taken Comments Blood Pressure 101/65 05/18/2019 11:56 AM INSURANCE SPECIALIST Pulse 88 05/18/2019 11:56 AM INSURANCE SPECIALIST Temperature 36.8 C (98.3 F) 05/18/2019 11:56 AM INSURANCE SPECIALIST Respiratory Rate 20 05/18/2019 11:56 AM INSURANCE SPECIALIST Oxygen Saturation 99% 05/18/2019 11:56 AM INSURANCE SPECIALIST Inhaled Oxygen Concentration - - Weight 72.6 kg (160 lb) 05/18/2019 11:56 AM INSURANCE SPECIALIST Height 175.3 cm (5' 9 ) 05/18/2019 11:56 AM INSURANCE SPECIALIST Body Mass Index 23.63 05/18/2019 11:56 AM INSURANCE SPECIALIST Plan of Treatment Health Maintenance Due Date Last Done Comments Colorectal Cancer Screening Colonoscopy (10 Years) 1959 Annual Physical 08/04/1962 Pneumococcal Vaccine: Pediat rics (0 to 5 Years) and At-Risk Patients (6 to 64 Years) (1 of 2 - PCV) 08/04/1965 Hepatitis C 08/04/1977 DTaP, Tdap and Td Vaccines ( 1 - Tdap) 08/04/1978 Zoster Vaccines (1 of 2) 08/04/2009 COVID-19 Vaccine (1 - 2023-2 5 season) 2024 Influenza Adult (#1) 2024 RSV Immunization or 60+ Years (1 - 1-dose 75+ series) 08/04/2034 Meningococcal B Vaccine Aged Out No l onger eligible based on patient's age to complete this topic Meningococcal Vaccine Aged Out No caron tiffanie eligible based on patient's age to complete this topic RSV Immunizations Under 20 Months Aged Out No longer eligible based on patient's age to complete this topic Insurance Care Teams Rn Intern Relationship Specialty Start Date End Date None, Provider, PCP - General 05/18/19
--- OUTSIDE RECORDS SUMMARY | 2024-07-31 21:41 | XMS_ITS | Referral Summary ---
Author Organization [facility] Address [address] [place] [address] Care Team Providers Care Cuffing Machine Operator Name Role Phone Venkata Mcginnis MD Primary Care Provider [phone] Allergies Active Allergy Reactions Criticality Noted Date Comments Gabapentin Muscle pain Medium 10/16/2022 Medications albuterol HFA (PROVENTIL HFA,VENTOLIN HFA,PROAIR HFA) 90 mcg/actuation inhaler INHALE 1 PUFF PO Q 4-6 H PRN FOR SHORTNESS OF BREATH 0 Active aspirin 81 mg chewable tablet Take 81 mg by mouth daily Active clindamycin (CLEOCIN) 300 mg capsule TK 1 CAPSULE PO BID 0 Active lisinopriL (PRINIVIL,ZESTR IL) 20 mg tablet Take 20 mg by mouth daily Active predniSONE (DELTASONE) 20 mg tablet TK 1 T PO QD 0 Active sulfamethoxazol e-trimethoprim (BACTRIM DS) 800-160 mg per tablet TK 1 T PO BID 0 Active acetaminophen (TYLENOL) 325 mg tablet Take 2 tablets (650 mg total) by mouth every 6 (six) hours as needed for pain 30 tablet 0 Active ibuprofen (ADVIL,MOTRIN) 400 mg tabletIndicatio ns:Pain Take 1 tablet (400 mg total) by mouth every 6 (six) hours as needed for pain 30 tablet 0 Active lidocaine (XYLOCAINE) 5 % ointment Apply topically as needed for pain 35.44 g 0 Active cyclobenzaprine (FLEXERIL) 10 mg tabletIndicatio ns:Muscle Spasm Take 1 tablet (10 mg total) by mouth nightly as needed for muscle spasms 12 tablet 0 Active Active Problems No known active problems Social History Tobacco Use Types Packs/Day Years Used Date Smoking Tobacco: Every Day Cigarettes Smokeless Tobacco: Never Alcohol Use Standard Drinks/Week Comments Not Currently 0 (1 standard drink = 0.6 oz pur e alcohol) Personal Safety Answer Date Recorded Getting School Help Needed Not on file 10/30 Sex and Gender Information Value Date Recorded Sex Assigned at Not on file Legal Sex Male 6:39 PM CRYSTAL GROWING TECHNICIAN Gender Identity Not on file Sexual Orientation Not on file Last Filed Vital Signs Vital Sign Reading Time Taken Comments Blood Pressure 130/65 10/16/2022 8:21 PM CDT Pulse 92 10/16/2022 8:21 PM CDT Temperature 36.7 C (98.1 F) 10/16/2022 8:21 PM CDT Respiratory Rate 15 10/16/2022 8:21 PM CDT Oxygen Saturation 98% 10/16/2022 8:21 PM CDT Inhaled Oxygen Concentration - - Weight 61.7 kg (136 lb) 10/16/2022 8:21 PM CDT Height 175.3 cm (5' 9 ) 10/18/2021 8:01 PM CDT Body Mass Index 20.08 10/18/2021 8:01 PM CDT Plan of Treatment Not on file Procedures Procedure Name Priority Date/Time Associated Diagnosis Comments HEPATITIS C ANTIBODY Routine 06/11/2018 5:19 PM CRYSTAL GROWING TECHNICIAN from Last 3 Months or Most Recently Relevant to Health Maintenance Results * (ABNORMAL) Hepatitis C antibody (06/11/2018 5:19 PM CRYSTAL GROWING TECHNICIAN) Hep C Ab REACTIVE( H) NONREACTIVE 06/11/2018 6:46 PM CRYSTAL GROWING TECHNICIAN [facility] HISTORICAL RESULTS Comment: Sample to be confirmed by HCV quantitative NAAT. [employer] using TARA (chemiluminescent immunoassay) technology. NONREACTIVE: Antibodies to Hepatitis C not detected. This does not exclude early acute Hepatitis C infection, possibility of exposure to Hepatitis C, antibodies below detection limit, or to lack of antibody reactivity to the antigen used in this assay. EQUIVOCAL: Antibodies to Hepatitis C may or may not be present. Sample to be confirmed by real-time PCR method. REACTIVE: Antibodies to Hepatitis C detected.Sample to be confirmed by real-time PCR method. 06/11/2018 5:19 PM CRYSTAL GROWING TECHNICIAN 06/11/2018 5:22 PM CRYSTAL GROWING TECHNICIAN [facility] - GENER AL ORDERABLES Final Result [facility] HISTORICAL RESULTS from Last 3 Months or Most Recently Relevant to Health Maintenance Insurance [facility] [address] [facility] [place] [address] [facility] [place] [address] Care Teams Cuffing Machine Operator Relationship Specialty Start Date End Date Venkata Mcginnis MD PCP - General Emergency Medicine 02/24/22
--- OUTSIDE RECORDS SUMMARY | 2024-07-31 21:41 | XMS_ITS | Continuity of Care Document ---
Author Organization [facility] Address [address] [place] [address] Phone Care Team Providers Care Washhouse Hand Name Role Phone Kenia Clifton DPM Unavailable Unavailable Allergies, Adverse Reactions, Alerts Substance Reaction Status Criticality gabapentin Active No Information Medications Medication Instructions Dosage Effective Dates (start - stop) Status Comments LISINOPRIL (unknown strength) Not Available - Active Procedures Procedure Date Global/Postop followup visit X-ray exam foot, minimum 3 views 2016 Global/Postop followup visit Correction Hallux Rigidus W/ Cheilectomy W/ Implant Exc Ganglion Foot Medical Record Copy Medical Record Copy Per Page Office/outpatient visit,[facility] 2016 Advance Directives Directive Yes / No Effective Date File Name No Information Encounters Encounter Description Practice Location Reason(s) For Visit Diagnoses Date Provider Providers Copied on Encounter [facility], [address] [place] [address], [id number], tel:[phone] [facility] Follow Up of right foot (chief complaint) Hallux valgus (acquired), right footHallux rigidus, right foot 7 Elodia Alfaro [address], [place], [place], [id number], [place]. tel:[phone] [facility], [address] [place] [address], [id number], [place] tel:[phone] [facility] Follow Up of right foot (chief complaint) Hallux rigidus, right footHallux valgus (acquired), right footPrimary osteoarthrit is, right ankle and footPain in right ankle and joints of right foot 7 Ambreensamuel KeniaChadwick [address], [facility] [address], [place], [place], [id number], [place]. tel:[phone] [facility], [address] [address], [place], [place], [id number], [place] tel:[phone] [facility] Hallux valgus (acquired), right footHallux rigidus, right footPrimary osteoarthrit is, right ankle and footPain in right ankle and joints of right footGanglion , right ankle and foot 7 Ambreensamuel Alfaro [address], [address] [address], [place], [place], [id number], [place]. tel:[phone] [facility], [address] [address], [place], [place], [id number], [place] tel:[phone] [facility] No Information 7 Administrative Provider. [address], [address] [address], [place], [place], [id number], [place]. tel:[phone] [facility], [address], [id number], [place] tel:[phone] [facility] Hallux valgus (acquired), right foot 7 Elodia R. [address], [facility] [address], [place], [place], [id number], [place]. tel:[phone] Office[facility]pa tient visit,[facility], [address] [address], [place], [place], [id number], [place] tel:[phone] [facility] right foot (chief complaint) Hallux valgus (acquired), right footHallux rigidus, right footPrimary osteoarthrit is, right ankle and footPain in right ankle and joints of right foot 7 Elodia Cheng [address] [facility], [address], [place], [place], [id number], [place]. tel:[phone] Family History Family Member Type Diagnosis Age At Onset Father Problem (finding) Arthritis Father Problem (finding) Cardiovascular disease Mother Problem (finding) Cardiovascular disease Father Problem (finding) hypertension Payers Payer name Insurance type Covered constitution party ID Authoriza tion(s) No Information Social History Type Description Quantity Date Captured Comments Alcohol Use Details Unknown Caffeine Use Details Unknown Tobacco Use Status Heavy cigarette smok er (20-39 cigs/day) Smoking Status Heavy tobacco smoker Smoking Tobacco Use Details Cigarette: No Details Available Cigarette: 1 Packs per day Sex Male Chief Complaint And Reason For Visit From encounter dated '01/04/2017 15:00'. Follow Up of right foot (chief complaint). Description: Patient returns for his right foot. Reason For Referral Reason For Referral No Information Plan Of Treatment Date Type Action Status Referral Ordered: X-ray exam foot, minimum 3 views RT ordered History Of Present Illness Encounter Date Complaint History Of Prese nt Illness Follow Up of right foot Patient returns for his right foot. Follow Up of right foot Patient returns for his right foot. right foot Patient presents for his right foot. Functional Status Date Functional Assessmen t No Information Instructions Date Instruction Additional Infor mation No Information Assessments Type Assessment Date assessment Hallux valgus (acquired), right foot assessment Hallux rigidus, right foot Patient Care Teams Name Effective Dates (start - stop) Status Members No Information
--- OUTSIDE RECORDS SUMMARY | 2024-07-31 21:41 | XMS_ITS | CONTINUITY OF CARE DOCUMENT ---
Author Name nate anabellaowen Address Unknown Organization [facility] Address [address] [place] [address] Phone [phone] Care Team Providers Care Welfare Analyst Name Role Phone Asa Robertson MD Unavailable [phone] YANELIS VALDERRAMA MD Unavailable [phone] YANELIS VALDERRAMA MD Unavailable [phone] PROBLEMS Condition Status Date Provider Notes Essential hypertension active Asa Robertson MD Smoker active Asa Robertson MD Cardiology examination active Maribel Nallu ri POLE CLIMBER HTN essential active Maribel Nalluri POLE CLIMBER Dyspnea on exertion active Maribel Nalluri POLE CLIMBER Carotid artery stenosis - bilateral active Maribel Nalluri POLE CLIMBER ENCOUNTERS Date Type Provider Location Encounter Diag nosis - In-person encounter Office Visit Asa Robertson MD [facility] Cardiology examinationHTN essentialDyspnea on exertionCarotid artery stenosis - bilateral - In-person encounter Office Visit Asa Robertson MD [facility] Essential hypertensionSmoker VITAL SIGNS Date Observation Value Provider Body Mass Index (Ratio) 19.93 kg/m2 Calixto Robertson MD blood pressure, diastolic 75 mm[Hg] Maureen [facility]Logic blood pressure, systolic 135 mm[Hg] Camilla kLogic blood pressure, diastolic 75 mm[Hg] Ke nikia Yu blood pressure, systolic 135 mm[Hg] Tammy Bergdeng blood pressure, cuff size regular Ke rri Morenadeng oxygen saturation, oximetry 95 % Iwona Bergdeng respiratory rate E&M 16 /min Iwona fritzdeng pulse rate 90 /min Iwona Quigleysemajjudith carloer weight E&M 135 [lb_av] Iwona Macias lder height E&M 69 [in_i] Iwona Mejíaabelardo matos ALLERGIES Allergy Name Onset Date Reaction Criticality Status GABAPENTIN High Criticality active RESULTS Date Observation Value Provider Reference Range Interpretation Location 2 cholesterol, non-HDL, total 132 mg/dL [facility] C, [place] [address] 2 HDL CHOLESTEROL 56 mg/dL [facility] >=40 Normal , [place] [address] 2 triglyceride, serum, fasting 221 mg/dL [facility] <=149 High C, [place] [address] 2 cholesterol, serum 188 mg/dL [facility] 30-199 Normal , [place] [address] 2 NT-pro BNP 172 [facility] <=300 Normal C, [place] [address] HISTORY OF MEDICATION USE Medication Status Instructions Dates Provider Indications Com ments atorvastatin 20 mg tablet active Take 1 tablet by mouth once a day TAKE 1 TABLET BY MOUTH EVERY DAY Maribel Nalluri POLE CLIMBER Aspirin Childrens 81 mg tablet,chewable active CHEW AND SWALLOW 1 TABLET BY MOUTH EVERY DAY Maribel Nalluri POLE CLIMBER bupropion HCl 150 mg tablet sustained-relea se 12 hr active Iwona Yu acetaminophen-c odeine 300-30 mg tablet completed - Iwona Yu lisinopril 20 mg tablet active Asa Robertson MD SOCIAL HISTORY Date Observation Value Provider number of years as a smoker 30 a Iwona Yu smoking history, tot al pack/day 1 ppd Iwona Yu cigarette use yes Iwona Berg elder smoking status Current every day smoker K senia Quigleygloriaroslynshalomcatie INSURANCE PROVIDERS Payer name Policy type / Coverage type [place] red green party ID [employer] MEDICAID (2) Medicaid [id number] ADVANCE DIRECTIVES Name Date DISCUSSED - NO DECISION MADE TREATMENT PLAN Date Name Performer [id number],C,P er patient he had carotid duplex at [facility], had 60% stenosis on left and 50% on right side. Will start on ASA,statin. Maribel Nalluri POLE CLIMBER [id number],C,Will check EC HO and NT pro BNP Maribel Nalluri POLE CLIMBER [id number],C,S mokes 1 pack a day. Conselled to quit. Maribel Nalluri POLE CLIMBER [id number],C,B P 135/75 today H is updated medication list for this problem includes: Lisinopril 20 Mg Tablet (Lisinopril) Maribel Nalluri POLE CLIMBER Cardiology:Per patie nt he had carotid duplex at [facility], had 60% stenosis on left and 50% on right side. Will start on ASA,statin. Maribel Nalluri POLE CLIMBER Cardiology:Will check ECHO and N T pro BNP Maribel Nalluri POLE CLIMBER Cardiology:Smokes 1 pack a day. Conselled to quit. Maribel Nalluri POLE CLIMBER Cardiology:BP 135/75 today H is updated medication list for this problem includes: Lisinopril 20 Mg Tablet (Lisinopril) Maribel Nalluri POLE CLIMBER Date Name Arterial Duplex Bi-L ower EX PROBNP, N TERMINAL LIPID PANEL Complete Echo HISTORY OF PROCEDURES Procedure Date Procedure Name Provider Procedure Notes S tatus EKG Asa Robertson MD complete d
--- OUTSIDE RECORDS SUMMARY | 2024-07-31 21:41 | XMS_ITS | Clinical Summary ---
Author Organization [facility] Address [address] [place] [address] Care Team Providers Care Home Security Alarm Installer Name Role Phone Venkata Mcginnis MD Primary Care Provider [phone] Source Comments [facility],non-owned Affiliates and Associated Physician Practices is amultiple site organization consisting of ambulatory clinics and hospital sitesin [place], [place], [place] and [place]. This disclosure is being madepursuant to the Care Everywhere program and may not contain all information available regarding this patient. Last updated 18.[facility] Social History Tobacco Use Types Packs/Day Years Used Date Smoking Tobacco: Never Assessed Sex and Gender Information Value Date Recorded Sex Assigned at Not on file Gender Identity Not on file Sexual Orientation Not on file Plan of Treatment Health Maintenance Due Date Last Done Comments COLOGUARD (AGES 45-75) - COLON CA SCREENING 1959 COLON MONITORING 1959 COLONOSCOPY - COLON CA SCREENING 1959 CT COLONOGRAPHY - COLON CA SCREENING 1959 Colorectal Cancer Screening 1959 FIT - COLON CA SCREENING 1959 FLEX SIG - COLON CA SCREENING 1959 LIPID TESTING 1959 HIV SCREENING 08/04/1974 HEPATITIS C SCREENING 07/31/1977 DTAP/TDAP/TD VACCINES (1 - Tdap) 08/04/1978 PNEUMOCOCCAL VACCINE 50+ (1 of 1 - PCV) 08/04/2009 ZOSTER VACCINE (1 of 2) 08/04/2009 HEPATITIS B VACCINE (1 of 3 - Risk 3-dose series) 2019 COVID-19 VACCINE (3 - 2023- season) 2024 08/24/2020, 07/28/2020 INFLUENZA VACCINE (#1) 2024 0, 03/01/2018, 07/15/2016, Additional history exists DEPRESSION SCREENING 05/24/2024 Respiratory Syncytial Virus (RSV) Vaccine Pt: or over 60 yrs (1 - 1-dose 75+ series) 08/04/2034 HIB VACCINE Aged Out No longer eligi ble based on patient's age to complete this topic HPV VACCINE Aged Out No longer eligi ble based on patient's age to complete this topic MENINGOCOCCAL (Group B) VACCINE Aged Out No longer eligible based on patient's age to complete this topic MENINGOCOCCAL VACCINE Aged Out No caron tiffanie eligible based on patient's age to complete this topic PNEUMOCOCCAL VACCINE Aged Out No long er eligible based on patient's age to complete this topic Care Teams Home Security Alarm Installer Relationship Specialty Start Date End Date Venkata Mcginnis MD [address] [place] [address] PCP - General Family Medicine 03/09/22
--- OUTSIDE RECORDS SUMMARY | 2024-07-31 21:41 | XMS_ITS | Clinical Summary ---
Author Organization [facility] Address [address] [place] [address] Care Team Providers Care Field Hand Name Role Phone Venkata Mcginnis MD Primary Care Provider [phone] Allergies Active Allergy Reactions Criticality Noted Date [...] Active Active Problems No known active problems Medical History Medical History Date Comments Hypertension COPD (chronic obstructive pulmonary disease) (HC C) Asthma Family History Medical History Relation Name Comments Multiple sclerosis Brother Relation Name Status Comments Brother Alive Social History Tobacco Use Types Packs/Day Years [...] on file Legal Sex Male 6:39 PM SPECIAL DELIVERY MESSENGER Gender Identity Not on file Sexual Orientation Not on file Obstetrics History Last Filed Vital Signs Vital Sign Reading [...] 10/18/2021 8:01 PM CDT Plan of Treatment Health Maintenance Due Date Last Done Comments Colon Cancer Screening-Colonoscopy 1959 Depression Screening 1959 Prostate Cancer Screening-PSA 1959 Hepatitis B Screening 08/04/1977 Regular Well Visit/Exam 18-64 08/04/1977 Pneumococcal vaccine <65 (1 of 2 - PCV) 08/04/1978 Zoster Vaccine (1 of 2) 08/04/2009 Influenza Vaccine (#1) 2024 07/29/2019, 2013 DTaP/Tdap/Td Vaccine (2 - Tdap) 06/11/2028 9 Hepatitis C Screening Completed 06/11/2018, 019 Procedures Procedure Name Priority Date/Time Associated Diagnosis Comments HEPATITIS C ANTIBODY Routine 06/11/2018 5:19 PM SPECIAL DELIVERY MESSENGER from Last 3 Months or Most Recently Relevant to Health Maintenance Results * (ABNORMAL) Hepatitis C antibody (06/11/2018 5:19 PM SPECIAL DELIVERY MESSENGER) Hep C Ab REACTIVE( H) NONREACTIVE 06/11/2018 6:46 PM SPECIAL DELIVERY MESSENGER [facility] HISTORICAL RESULTS Comment: Sample to be confirmed by HCV quantitative NAAT. [employer] C[employer]italaurXP using TARA (chemiluminescent immunoassay) technology. NONREACTIVE: Antibodies [...] by real-time PCR method. 06/11/2018 5:19 PM SPECIAL DELIVERY MESSENGER 06/11/2018 5:22 PM SPECIAL DELIVERY MESSENGER [facility] - [facility] AL ORDERABLES Final Result [facility] HISTORICAL RESULTS from Last 3 Months or Most Recently Relevant to Health Maintenance Insurance [facility] [place] [address] [facility] [place] [address] Care Teams Field Hand Relationship Specialty Start Date End Date Venkata Mcginnis MD PCP - General Emergency Medicine 02/24/22
--- OUTSIDE RECORDS SUMMARY | 2024-07-31 21:41 | XMS_ITS | Referral Summary ---
Author Organization [facility] Address [address] [place] [address] Care Team Providers Care Milk Pasteurizer Name Role Phone Venkata Mcginnis MD Primary Care Provider [phone] Source Comments [facility],non-[facility] Affiliates and Associated Physician Practices is amultiple site organization consisting of ambulatory clinics and hospital sitesin [place], [place], [place] and [place]. This disclosure is being madepursuant to the Care Everywhere program and may not contain all information available regarding this patient. Last updated 18.[facility] [id number] Social History Tobacco Use Types Packs/Day Years Used Date Smoking Tobacco: Never Assessed Sex and Gender Information Value Date Recorded Sex Assigned at Not on file Gender Identity Not on file Sexual Orientation Not on file Plan of Treatment Not on file Care Teams Milk Pasteurizer Relationship Specialty Start Date End Date Venkata Mcginnis MD [address] [place] [address] PCP - General Family Medicine 03/09/22
--- OUTSIDE RECORDS SUMMARY | 2024-07-31 21:41 | XMS_ITS | Patient Health Summary ---
Author Organization [facility] [employer] Address [address] [place] [address] Care Team Providers Care Software Asset Manager Name Role Phone Venkata Mcginnis MD Primary Care Provider [phone] Note from [facility],non-owned Affiliates and Associated Physician Practices is amultiple site organization consisting of ambulatory clinics and hospital sitesin [place], [place], [place] and [place]. This disclosure is being madepursuant to the Care Everywhere program and may not contain all information available regarding this patient. Last updated 18.[facility] [employer] Social History Tobacco Use Types Packs/Day Years Used Date Smoking Tobacco: Never Assessed Sex and Gender Information Value Date Recorded Sex Assigned at Not on file Gender Identity Not on file Sexual Orientation Not on file Procedures * CT LUNG SCREEN LOW DOSE(Performed 04/23/2022) Performed for Screening for lung cancer, Personal history of smoking * LAB(Performed 02/24/2022) * XR CERVICAL SPINE 2 OR 3VW(Performed 02/24/2022) Results * CT LUNG SCREEN LOW DOSE (04/23/2022 11:56 AM HYDRATE CONTROL TENDER) Anatomical Region Laterality Modality Chest Computed Tomogra phy 04/23/2022 12:4 7 PM HYDRATE CONTROL TENDER Narrative 04/23/2022 12:52 PM HYDRATE CONTROL TENDER PROCEDURE: CT LUNG SCREEN LOW DOSE, DATE/TIME OF EXAM: 04/23/2022 11:57 AM, LOCATION [facility] INDICATION: Z12.2: Screening for lung cancer Z87.891: Personal history of smoking ADDITIONAL CLINICAL INFORMATION: Ordering Provider Reason For Exam: Screening for lung cancer COMPARISON: None. TECHNIQUE: CT of the chest was performed without intravenous contrast utilizing low dose protocol. CT dose reduction technique was used, including Automated Exposure Control. FINDINGS: Central tracheobronchial tree: Clear. Lungs: There is focal peripheral thickening in the left upper lobe seen on series 6 image 32 measuring 6 mm. This likely represents an area of scarring. Pleura: No significant pleural effusion. No pneumothorax. Heart: Heart is not enlarged. No significant pericardial effusion. There are coronary artery atherosclerotic calcifications. The thoracic aorta is normal in caliber with atherosclerotic calcifications. Kristina/mediastinum: No abnormally enlarged hilar or mediastinal lymph nodes by noncontrast technique. Bones: No significant osseous changes. Upper abdomen: No abnormality in the visualized upper abdomen. ASSESSMENT: Lung-RADS 2: Benign appearance or behavior. RECOMMENDATION: Follow up LDCT in 1 year. ACR Lung-RADS Category/Recommendations: 0: Need prior comparisons or additional images 1: Negative: 12 month follow up LDCT (Low Dose CT) 2: Benign Appearin month follow up LDCT 3: Probably Benign: 6 month follow up LDCT 4A: Suspicious: 3 month follow up LDCT (or immediate PET if >7mm solid component) 4B: Suspicious: Immediate Chest CT or PET if >7mm solid component 4X: Cat 3 or 4A nodules with additional suspicious findings Modifier- S : Significant NON-lung cancer findings For details of the ACR Lung-RADS program, categories and recommendations: 1) https://www.acr.org/Quality-Safety/Resources/LungRADS 2) Internet search: Lung-RADS Lung Cancer Screening 3) Contact [facility] thoracic nurse coordinator ([phone]) > Interpreting Provider: Sj Stearns MD on 04/23/2022 12:52 PM Procedure Note Sj Stearns MD - 04/23/2022 PROCEDURE: CT LUNG SCREEN LOW DOSE, DATE/TIME OF EXAM: 04/23/2022 11:57 AM, LOCATION [facility] INDICATION: Z12.2: Screening for lung cancer Z87.891: Personal history of smoking ADDITIONAL CLINICAL INFORMATION: Ordering Provider Reason For Exam: Screening for lung cancer COMPARISON: None. TECHNIQUE: CT of the chest was performed without intravenous contrast utilizing low dose protocol. CT dose reduction technique was used, including Automated ExposureControl. FINDINGS: Central tracheobronchial tree: Clear. Lungs: There is focal peripheral thickening in the left upper lobe seenon series 6 image 32 measuring 6 mm. This likely represents an area of scarring. Pleura: No significant pleural effusion. No pneumothorax. Heart: Heart is not enlarged. No significant pericardial effusion. There are coronary artery atherosclerotic calcifications. The thoracic aortais normal in caliber with atherosclerotic calcifications. Kristina/mediastinum: No abnormally enlarged hilar or mediastinal lymphnodes by noncontrast technique. Bones: No significant osseous changes. Upper abdomen: No abnormality in the visualized upper abdomen. ASSESSMENT: Lung-RADS 2: Benign appearance or behavior. RECOMMENDATION: Follow up LDCT in 1 year. ACR Lung-RADS Category/Recommendations: 0: Need prior comparisons or additional images 1: Negative: 12 month follow up LDCT (Low Dose CT) 2: Benign Appearin month follow up LDCT 3: Probably Benign: 6 month follow up LDCT 4A: Suspicious: 3 month follow up LDCT (or immediate PET if >7mm solid component) 4B: Suspicious: Immediate Chest CT or PET if >7mm solid component 4X: Cat 3 or 4A nodules with additional suspicious findings Modifier- S : Significant NON-lung cancer findings For details of the ACR Lung-RADS program, categories andrecommendations: 1) https://www.acr.org/Quality-Safety/Resources/LungRADS 2) Internet search: Lung-RADS Lung Cancer Screening 3) Contact [facility] thoracic nurse coordinator ([phone]) > Interpreting Provider: Sj Stearns MD on 04/23/2022 12:52 PM Venkata Mcginnis MD CT ORDERABLES * LAB (02/24/2022) Scanned Document SCANNING ONLY * XR CERVICAL SPINE 2 OR 3VW (02/24/2022) Anatomical Region Laterality Modality Spine Other Scanned Document [facility] Care Teams Software Asset Manager Relationship Specialty Start Date End Date Venkata Mcginnis MD [address] [place] [address] PCP - General Family Medicine 03/09/22
[2024-07-31 21:42] LABS: Basophils Absolute Auto 0.1 K/mm3 (0.0-0.1); Basophils Percent Auto 0.6 % (0.2-1.2); Eosinophils Absolute Auto 0.5 K/mm3 (0-0.3); Eosinophils Percent Auto 4.3 % (0-4.4); Hematocrit 41.9 % (42.0-52.0); Hemoglobin 13.7 g/dL (14.0-18.0); Immature Granulocyte Absolute 0.02 K/mm3 (0.00-0.031); Immature Granulocyte Percent A 0.2 % (0-0.5); Lymphocytes Absolute Auto 3.06 K/mm3 (0.9-3.2); Lymphocytes Percent Auto 28.4 % (18.3-44.2); Mean Corpuscular HGB Conc 32.7 g/dl (32-36); Mean Corpuscular Hemoglobin 30.4 pg (26-34); Mean Corpuscular Volume 92.9 fl (80-100); Mean Platelet Volume 9.4 fl (7.4-10.4); Monocytes Absolute Auto 0.7 K/mm3 (0.1-0.6); Monocytes Percent Auto 6.9 % (2.6-8.5); Neutrophils Absolute Auto 6.4 K/mm3 (1.3-6.7); Neutrophils Percent Auto 59.6 % (45.5-73.1); Platelet Count Result 414 k/mm3 (150-375); Red Blood Count 4.51 M/mm3 (4.6-6.20); Red Cell Distribution Width 12.8 % (11.5-14.5); White Blood Count 10.8 K/mm3 (4.5-10.0)
[2024-07-31 21:52] LABS: Prothrombin Time 13.1 Seconds (11.1-14.7)
[2024-07-31 22:00] LABS: Alanine Aminotransferase 19 U/L (6-50); Alkaline Phosphatase 71 U/L (38-126); Anion Gap 10 mmol/L (4-12); Aspartate Amino Transferase 30 U/L (17-59); Bilirubin,Total 0.3 mg/dL (0.2-1.3); Blood Urea Nitrogen 22 mg/dL (9-20); Calcium 8.6 mg/dL (8.4-10.2); Carbon Dioxide 24 mmol/L (22-30); Chloride 103 mmol/L (98-107); Estimated CRCL calculation 48 ml/min; Estimated Glomerular Filt Rate > 60; Glucose 111 mg/dL (65-110); Lipase 139 U/L (23-300); Magnesium 1.9 mg/dL (1.6-2.3); Potassium 3.6 mmol/L (3.4-5.0); Sodium 137 mmol/L (137-145)
[2024-07-31 22:12] LABS: Troponin I < 0.012 ng/mL (0.000-0.034)
[2024-07-31 22:26] LABS: Strep Group A RT-PCR NOT DETECTED (Negative)
[2024-07-31 22:37] LABS: Influenza A QL RT-PCR Negative (Negative); Influenza B QL RT-PCR Negative (Negative); RSV RNA, RT-PCR Negative (Negative); SARS-CoV-2 RNA PCR Negative (Negative)
--- NOTE | 2024-07-31 22:45 | ED_ITS ---
HPI - Chest Pain General Chief Complaint: Chest Pain Stated Complaint: CHEST PAIN/SOB Time Seen by Provider: 07/31/24 21:23 History of Present Illness HPI narrative: Patient is a 63-year-old male who presents to the emergency department this evening complaining of chest pain which started while he was cleaning at home. Symptoms started sometime between 6-8 p.m. Denies any history of cardiovascular disease, patient states that he has been having some URI symptoms and was concerned that his chest pain is from COVID. Denies any recent fevers or chills. No additional symptoms or concerns at this time. Related Data Allergies Allergy/AdvReac Type Severity Reaction Status Date / Time gabapentin Allergy Other Verified 12/29/23 16:51 Review of Systems 2 Review of Systems: All systems are reviewed and are negative unless stated otherwise in the HPI. [facility] Past Medical History Medical History Carotid artery stenosis Social History Social History Smoking packs per day: 1 Smoking cigarettes per day: 20.0 Smoking status: Current every day smoker Gender identity (if verbalized by the patient): Male Exam 2 Narrative: General: Alert, awake, afebrile, in no acute distress. HEENT: PERRL, no rhinorrhea, no post nasal drip, oropharynx clear. Neck: Trachea midline, no JVD, no lymphadenopathy. Cardiovascular: Regular rate and rhythm, no murmurs, rubs or gallops, no peripheral edema. Respiratory: Clear to auscultation bilaterally, no tachypnea, no wheezing, no rhonchi, no rubs, no respiratory distress. Abdomen: Soft, nontender, nondistended, no rebound, no guarding, no peritoneal signs. Musculoskeletal: No joint swelling or deformity, normal muscle tone. Skin: No rashes or petechia, no signs of infection. Psychiatric: Alert and oriented, normal behavior and judgment for situation. Neurological: Alert and oriented to person, place, and time. Follows all commands. No focal deficits, speech is clear and fluent. Course Vital Signs Vital signs: Vital Signs Temperature 97.9 F 07/31/24 21:10 Pulse Rate 90 07/31/24 21:10 Respiratory Rate 16 07/31/24 21:10 Blood Pressure 158/101 H 07/31/24 21:10 Pulse Oximetry 98 07/31/24 21:10 Oxygen Delivery Room Air 07/31/24 21:10 Temperature 97.9 F 07/31/24 21:27 Pulse Rate 75 08/01/24 02:19 Respiratory Rate 12 08/01/24 02:19 Blood Pressure 163/92 H 08/01/24 02:19 Pulse Oximetry 100 08/01/24 02:19 Oxygen Delivery Room Air 07/31/24 21:27 MDM - Chest Pain MDM Narrative Medical decision making narrative: The patient was evaluated by myself in the emergency department. History is obtained from patient who is an independent historian and physical exam was performed. External medical records were reviewed at this time. IV was established and pertinent tests were ordered. Patient was administered 15 mg of IV Toradol for pain. Patient does admit that his chest pain is reproducible. EKG was obtained which revealed sinus rhythm rate of 83 beats per minute. No ST changes, T wave inversions or evidence of acute ischemia. EKG was independently interpreted by me and is currently pending official cardiology read. Laboratory results obtained revealing no acute process. Initial troponin negative. Viral swabs negative for COVID/influenza/RSV. Strep swab negative. Second troponin was noted to be elevated at 0.070. At this time, patient was informed of these findings and given his elevated 2nd troponin which is trending upward, patient will need to be admitted for further evaluation for NSTEMI. Patient was started on heparin drip at this time. Repeat 3 hour EKG was obtained at this time and plan interpreted by me revealing sinus rhythm rate of 57 beats per minute, no ST elevations or any evidence of acute ischemia. EKG was interpreted by me and is currently pending official cardiology read. Imaging studies obtained included CXR which was independently interpreted by me revealing no acute cardiopulmonary process, which is pending final radiology interpretation. Differential diagnosis considerations include acute coronary syndrome, costochondritis, infectious process such as pneumonia, pericarditis. Comorbidities impacting this visit include current tobacco use. I have evaluated and discussed social determinants of health with the patient that could potentially impact subsequent diagnosis and treatment plans. On repeat assessment of the patient, reevaluation revealed that the patient is doing well and is in no acute distress. Patient symptoms have improved since he arrived to our emergency department, he is resting comfortably asleep on repeat assessment. Repeat vital signs were all reviewed and noted to be stable. Differential diagnosis and treatment plan were discussed with the patient at bedside. Patient agrees with discussion and after shared medical decision making agrees with admission. All questions were answered to the patient's satisfaction. Case was discussed with the on-call TINT LAYER at 0240 and she accepted admission. Patient was admitted to our IMU in stable condition. Critical care time of 57 minutes, exclusive of separately performed procedures, necessary for treating or preventing eminent or life-threatening deterioration of patient's condition of NSTEMI requiring IV heparin infusion, focused on patient care provided personally by me and time spent during initial evaluation, physical examination, ordering and performing treatments and interventions, ordering and reviewing laboratory studies, ordering and reviewing radiographic studies, re-evaluation of the patient's condition, evaluation of the patient's response to treatment, and discussion of patient case with multiple consultants. Lab Data 07/31/24 21:22 07/31/24 21:22 Labs: Lab Results 07/31/24 07/31/24 08/01/24 Range/Units 21:22 21:23 00:43 WBC 10.8 H (4.5-10.0) K/mm3 RBC 4.51 L (4.6-6.20) M/mm3 Hgb 13.7 L (14.0-18.0) g/dL Hct 41.9 L (42.0-52.0) % MCV 92.9 (80-100) fl MCH 30.4 (26-34) pg MCHC 32.7 (32-36) g/dl RDW 12.8 (11.5-14.5) % Plt Count 414 H (150-375) k/mm3 MPV 9.4 (7.4-10.4) fl Immature Gran % (Auto) 0.2 (0-0.5) % Neut % (Auto) 59.6 (45.5-73.1) % Lymph % (Auto) 28.4 (18.3-44.2) % [place] % (Auto) 6.9 (2.6-8.5) % Eos % (Auto) 4.3 (0-4.4) % Baso % (Auto) 0.6 (0.2-1.2) % Lymph # (Auto) 3.06 (0.9-3.2) K/mm3 [place] # (Auto) 0.7 H (0.1-0.6) K/mm3 Eos # (Auto) 0.5 H (0-0.3) K/mm3 Baso # (Auto) 0.1 (0.0-0.1) K/mm3 Abs Immat Gran (auto) 0.02 (0.00-0.031) K/mm3 Absolute Neuts (auto) 6.4 (1.3-6.7) K/mm3 Absolute Nucleated RBC 0.000 (0.0-0.012) K/mm3 Nucleated RBC % 0.0 (0.0-0.2) % PT 13.1 (11.1-14.7) Seconds INR 1.0 APTT 30.0 (22.3-36.8) Seconds Sodium 137 (137-145) mmol/L Potassium 3.6 (3.4-5.0) mmol/L Chloride 103 (98-107) mmol/L Carbon Dioxide 24 (22-30) mmol/L Anion Gap 10 (4-12) mmol/L BUN 22 H (9-20) mg/dL Creatinine 1.17 (0.7-1.3) mg/dL Estim Creat Clear Calc 48 ml/min Estimated GFR > 60 (59 - ) Glucose 111 H (65-110) mg/dL Calcium 8.6 (8.4-10.2) mg/dL Magnesium 1.9 (1.6-2.3) mg/dL Total Bilirubin 0.3 (0.2-1.3) mg/dL AST 30 (17-59) U/L ALT 19 (6-50) U/L Alkaline Phosphatase 71 (38-126) U/L Troponin I < 0.012 0.070 H* D (0.000-0.034) ng/mL Total Protein 7.0 (6.3-8.2) g/dL Albumin 4.0 (3.5-5.1) g/dL Lipase 139 (23-300) U/L Influenza A (RT-PCR) Negative (Negative) Influenza B (RT-PCR) Negative (Negative) RSV (RT-PCR) Negative (Negative) SARS-CoV-2 RNA (RT-PCR) Negative (Negative) Group A Strep (PCR) Not detected (Negative) Critical Care Time Critical Care Time Total Critical Care Time: 57 (Please refer to MDM for attestation.) Discharge Plan Discharge Clinical Impression: Chest pain, Non-ST elevation [place] (NSTEMI) Patient Disposition: Still a Patient Condition: Stable Patient Language: Thai Prescriptions: No Action sulfamethoxazole-trimethoprim 800-160 mg tablet 1 tablet PO Q12H Qty: 14 0RF Follow-up/Referrals: Venkata Mcginnis MD [Primary Care Provider] - Time of Disposition: 01:54
[2024-07-31] MEDS: KETOROLAC 15 MG/ML VIAL (*BKC) IV PUSH (22:51)
[2024-07-31 22:52] VITALS: BP 146/82; PULSE 86; RESP 15; O2SAT 99
[2024-08-01] VITALS (10 sets, daily range): BP systolic 139–171; BP diastolic 88–94; PULSE 67–84; RESP 12–20; TEMP 36.4–36.7; O2SAT 97–100; BMI 19.3
--- NOTE | 2024-08-01 | ECHO_ITS ---
Patient Info Name: Eugene Carr Age: 63 years : 1960 Gender: Male Ht: 69 in Wt: 130 lbs BSA: 1.69 m2 HR: 72 bpm BP: 164 / 94 mmHg Heart Rhythm: Sinus Rhythm Technical Quality: Fair Exam Date: 08/01/2024 9:29 AM Exam Location: Echo Lab Patient Status: Inpatient Admit Date: 08/01/2024 Staff Ordering Physician: Katrin Diaz APRN Parcel Wrapper: Hannah Daniel RDCS Attending Provider: Mercy Iverson MD Referring Physician: Emily ESCOBAR; Exam Type: CA echo doppler color flow Study Info Indications - Chest pain Complete two-dimensional, color flow and Doppler transthoracic echocardiogram is performed. Summary 1. Complete two-dimensional, color flow and Doppler transthoracic echocardiogram is performed. 2. Left ventricular chamber dimension is normal. 3. Left ventricular systolic function is normal, estimated at 60-65%. 4. The left ventricular diastolic function is grade I diastolic dysfunction. 5. Right ventricular systolic function is normal. 6. The aortic valve is not well visualized, but appears to be severely calcifed. . 7. There is no aortic valve regurgitation. Left Ventricle Left ventricular chamber dimension is normal. Left ventricular systolic function is normal, estimated at 60-65%. There is no increased left ventricular wall thickness. The left ventricular diastolic function is grade I diastolic dysfunction. Right Ventricle Right ventricular chamber dimension is normal. Right ventricular systolic function is normal. Left Atria Left atrial chamber dimension is normal. Right Atria Right atrial chamber dimension is normal. Atrial Septum Intact interatrial septum visualized by color flow imaging. Aortic Valve The aortic valve is not well visualized, but appears to be severely calcifed. . There is no aortic valve regurgitation. Pulmonic Valve The pulmonic valve is not well visualized. There is no pulmonic regurgitation. Mitral Valve There is trace mitral valve regurgitation. Tricuspid Valve There is trace tricuspid valve regurgitation. Pericardium/Pleural There is no pericardial effusion. Inferior Vena Cava Normal inferior vena cava with >50% collapse upon inspiration consistent with normal right atrial pressure, 3 mmHg. Aorta The aortic root size at the sinus of Valsalva is normal. Left Ventricular Outflow Tract Name Value Normal LVOT 2D LVOT Diameter 2.0 cm LVOT Doppler LVOT Peak Gradient 3 mmHg LVOT Mean Gradient 1 mmHg LVOT VTI 19 cm LVOT VTI/AV VTI Ratio 0.7 LVOT Stroke Volume 63 ml LVOT CO 4.5 l/min LVOT CI 2.7 l/min/m2 Pulmonic Valve Name Value Normal RVOT Doppler RVOT Peak Gradient 2 mmHg PV Doppler PV Peak Gradient 4 mmHg Mitral Valve Name Value Normal MV Doppler MV Decel [place] 166 cm/s2 MV PHT 105 ms MV Area (PHT) 2.1 cm2 4.0-5.0 MV Diastolic Function MV E Peak Velocity 60 cm/s MV A Peak Velocity 87 cm/s MV E/A 0.7 MV Decel Time 363 ms MV Annular TDI MV E/e' (Septal) 8.3 <=8.0 MV E/e' (Lateral) 6.3 <=8.0 MV E/e' (Average) 7.3 Tricuspid Valve Name Value Normal TV Regurgitation Doppler TR Peak Velocity 201 cm/s TR Peak Gradient 16 mmHg Estimated PAP/RSVP RA Pressure 3 mmHg <=5 PA Systolic Pressure 19 mmHg <36 RV Systolic Pressure 19 mmHg <36 Aortic Valve Name Value Normal AV Doppler AV Peak Velocity 139 cm/s AV Peak Gradient 8 mmHg AV Mean Gradient 4 mmHg AV VTI 28 cm AV Area (Cont Eq VTI) 2.3 cm2 >=3.0 AV Area (Cont Eq Claudio) 2.1 cm2 AV Regurgitation 2D LVOT Area 3.3 cm2 Ventricles Name Value Normal LV Dimensions 2D/MM IVS Diastolic Thickness (2D) 1.0 cm 0.6-1.0 LVID Diastole (2D) 4.1 cm 4.2-5.8 LVIW Diastolic Thickness (2D) 1.0 cm 0.6-1.0 LVID Systole (2D) 2.7 cm 2.5-4.0 LVOT Diameter 2.0 cm LV Mass (2D Cubed) 123.50 g 88.00-224.00 LV Mass Index (2D Cubed) 73 g/m2 49-115 Relative Wall Thickness (2D) 0.48 LV Fractional Shortening/Ejection Fraction 2D/MM LV Fractional Shortening (2D) 33 % 25-43 LV EF (2D Teicholz) 62 % 52-72 LV Diastolic Volume (4C MOD) 115 ml LV EF (4C MOD) 66 % LV Diastolic Volume (2C MOD) 134 ml LV EF (2C MOD) 64 % LV Diastolic Volume (BP MOD) 129 ml 62-150 LV Diastolic Volume Index (BP MOD) 76 ml/m2 34-74 LV Systolic Volume (BP MOD) 44 ml 21-61 LV Systolic Volume Index (BP MOD) 26 ml/m2 11-31 LV EF (BP MOD) 66 % 52-72 LV Diastolic Length (4C) 9.0 cm LV Systolic Length (4C) 7.3 cm LV Stroke Volume (4C MOD) 76 ml Atria Name Value Normal LA Dimensions LA Volume (4C A-L) 40 ml LA Volume (BP A-L) 49 ml RA Dimensions RA Area (4C) 11.6 cm2 <=18.0 Report Signatures
--- NOTE | 2024-08-01 00:36 | ECG_ITS ---
Test Date: 2024-08-01 00:41:01 Measurements Intervals [place] Rate: 75 P: 73 GA: 147 QRS: 22 QRSD: 94 T: 73 QT: 388 QTc: 435 Interpretive Statements SINUS RHYTHM POSSIBLE LEFT ATRIAL ENLARGEMENT [-0.1mV P WAVE IN V1/V2] INCOMPLETE RIGHT BUNDLE BRANCH BLOCK [90+ ms QRS DURATION, TERMINAL R IN V1/V2, 40+ ms S IN I/aVL/V4/V5/V6] NONSPECIFIC ST AND T WAVE ABNORMALITY Compared to ECG 07/31/2024 21:21:07 NO SIGNIFICANT CHANGES Electronically Signed On 08-01-2024 14:49:36 CDT by Petra Leslie M.D.
[2024-08-01] MEDS: HEPARIN SODIUM 5,000 UNITS/ML VIAL 3500 UNITS IV PUSH (02:09)
[2024-08-01] MEDS: HEPARIN SOD/D5W 100 UNITS/ML 25,000 UNITS/250 ML BAG 7 UNITS IV CONT (02:09)
--- NOTE | 2024-08-01 03:47 | ADMGEN ---
This patient, Eugene Carr, was admitted to IMU Room 213-01 at 0335. Patient/family oriented to hospital policies and general routines including ID bracelet, bed and alarms, visiting hours, pain management, procedures, bathroom and other care routines, personal items, smoking policy, room service/diet, and visiting hours. Information on how to activate the Rapid Response Team has been discussed. Patient/Family are encouraged to report perceived risks to care and to ask questions if they do not understand what they are told or what they should do.
--- NOTE | 2024-08-01 03:48 | P.HP_ITS ---
H&P: HPI History of Present Illness Date/Time: 08/01/24 03:48 Chief Complaint: Chest pain Narrative: This is a 63-year-old male with a significant past medical history of carotid artery stenosis, hypertension, marijuana abuse, current every day smoker who presented to the hospital with complaints of chest pain and shortness of breath with exertion. Patient states that he was cleaning his house when he became SOB with chest pain. He states that he did have some nausea and vomiting over the past few days. He denies any recent sick contacts. He denies any fever, chills, nausea, vomiting, diarrhea, abdominal pain, chest pain, or shortness of breath right now. He is a current every day smoker and he reports smoking 1 pack per day. Workup in the hospital included a chest x-ray which was negative. Initial labs showed a white blood cell count of 10.8, hemoglobin 13.7, INR 1.0, blood sugar 111, magnesium 1.9, troponin 0.012> 0.070, lipase was normal at 139. Respiratory panel was negative for influenza a and B, RSV, COVID. Group base strep PCR was negative. EKG showed sinus rhythm with incomplete right bundle branch block with a rate of 75, QTC 435. Patient was started on a heparin infusion for acute coronary syndrome and given a dose of Toradol while in the ED. Review of Systems Review of Systems: All systems reviewed & are unremarkable except as noted in HPI and below PMFSH Past Medical History Medical History Tobacco abuse Hypertension Carotid artery stenosis Social History Social History Smoking packs per day: 1 Smoking cigarettes per day: 20.0 Years smoked: 49 Smoking pack-years: 49.00 Smoking status: Current every day smoker Tobacco type: cigarettes Alcohol intake: current Drinks per week: 14 Substance use: current Substance use type: marijuana Last use: 07/31/2024 Do You Feel Safe in your Home?: Yes Lack of Transportation: YES Lack of Food: Never True Current Housing: I Have Housing Concerned About Future Housing: No Difficulty Paying Gas/Electric Bills: No Difficulty Paying for Meds: YES Currently Unemployed: No Education: High School Diploma/GED Difficulty w/ Childcare or Family Care: No Gender identity (if verbalized by the patient): Male Spiritual care concerns: No Meds Home Medications and Allergies Home Medications ?Medication ?Instructions ?Recorded ?Confirmed ?Type aspirin 81 mg tablet,delayed 81 mg PO DAILY 08/01/24 08/01/24 History release (Adult Low Dose Aspirin) lisinopril 20 mg tablet 20 mg PO DAILY 08/01/24 08/01/24 History Allergies Allergy/AdvReac Type Severity Reaction Status Date / Time gabapentin Allergy Other Verified 08/01/24 03:43 Vital Signs Vital Signs - 24 hr 07/31/24 21:10 07/31/24 21:15 07/31/24 21:27 Temperature 97.9 F Pulse Rate 90 90 Respiratory Rate 16 Blood Pressure 158/101 H Pulse Oximetry 98 98 Oxygen Delivery Room Air Room Air 07/31/24 21:27 07/31/24 22:52 08/01/24 01:13 Temperature 97.9 F Pulse Rate 81 86 79 Respiratory Rate 15 15 16 Blood Pressure 158/101 H 146/82 H 139/92 H Pulse Oximetry 98 99 98 Oxygen Delivery 08/01/24 02:19 Temperature Pulse Rate 75 Respiratory Rate 12 Blood Pressure 163/92 H Pulse Oximetry 100 Oxygen Delivery Exam Narrative: General: In no acute distress, well nourished Head: atraumatic, no encephalopathy Eyes:PERRLA, sclera clear ENT: moist mucous membranes, nasal passages clear Neck: supple, no JVD, no adenopathy, trachea midline Cardiac: Normal S1 and S2. Murmur noted. No gallops or friction rubs, peripheral pulses intact. Respiratory: Lungs clear to auscultation, no adventitious lung sounds, currently on room air Gastrointestinal: soft, non-distended, non-tender, normoactive bowel sounds. : voiding without difficulty. Extremities: moves all extremities well, no edema, good ROM, strength 5/5 Skin: clean, dry, intact. No wounds or lesions. Neuro: Alert and oriented x4, cranial nerves intact, no neuro deficits. Psych: normal mood, normal affect, interactive H&P: Results Labs Labs: Short CBC 07/31/24 Range/Units 21:22 WBC 10.8 H (4.5-10.0) K/mm3 Hgb 13.7 L (14.0-18.0) g/dL Hct 41.9 L (42.0-52.0) % Plt Count 414 H (150-375) k/mm3 BMP 07/31/24 21:22 Sodium 137 Potassium 3.6 Chloride 103 Carbon Dioxide 24 BUN 22 H Creatinine 1.17 Glucose 111 H Calcium 8.6 Cardiac Enzymes 07/31/24 08/01/24 Range/Units 21:22 00:43 Troponin I < 0.012 0.070 H* D (0.000-0.034) ng/mL Liver Function 07/31/24 Range/Units 21:22 Total Bilirubin 0.3 (0.2-1.3) mg/dL AST 30 (17-59) U/L ALT 19 (6-50) U/L Alkaline Phosphatase 71 (38-126) U/L Albumin 4.0 (3.5-5.1) g/dL Imaging Chest x-ray: Radiologist's impression: EXAMINATION: XR chest 1V portable Exam Date/Time: 07/31/2024 21:30 CDT HISTORY: sob cp Comparison: 10/29/2022. RESULT: Lines, tubes, and devices: None. Lungs and pleura: Clear. Cardiomediastinal silhouette: Stable. Other: No acute osseous or upper abdominal finding. IMPRESSION: No acute cardiopulmonary process. Reviewed, dictated and finalized at location [facility]. Assessment and Plan Assessment and plan (1) Non-ST elevation [place] (NSTEMI): Code(s): I21.4 - Non-ST elevation (NSTEMI) myocardial infarction Status: Acute Assessment and Plan: * Chest x-ray was negative * Troponin 0.012> 0.070>0.138 * Heart score-5, moderate risk * Patient started on heparin infusion for acute coronary syndrome * Cardiology consulted * Echocardiogram ordered * Continue cardiac monitoring * Continue aspirin 81 mg daily * Admit to IMU (2) Hypertension: Code(s): I10 - Essential (primary) hypertension Status: Acute Assessment and Plan: * Blood pressures ranging 146/82 to 163/92 * Continue lisinopril (3) Tobacco abuse: Code(s): Z72.0 - Tobacco use Status: Acute Assessment and Plan: * Current every day smoker, smokes 1 pack per day * Encourage smoking cessation Quality VTE Prophylaxis VTE prophylaxis: pharmacologic ordered Hospitalist MIPS Advance Care Plan I have confirmed that the patient's Advanced Care Plan is present, code status is documented, or surrogate decision maker is listed in patient medical record.: Yes Medication Reconciliation I have utilized all available resources to obtain, update and review the patie nts current medications (includes all prescriptions, OTC, herbals, cannabis, and nutritional supplements).: Yes
[2024-08-01 04:33] LABS: Troponin I 0.138 ng/mL (0.000-0.034)
[2024-08-01 06:31] LABS: Cholesterol 179 mg/dL (0-200); HDL Direct 57 mg/dL; Magnesium 1.9 mg/dL (1.6-2.3); Triglycerides 48 mg/dL (<150)
[2024-08-01 06:41] LABS: LDL Cholesterol Direct 100 mg/dL
[2024-08-01] MEDS: ASPIRIN 81 MG ENTERIC TABLET PO (08:29)
[2024-08-01] MEDS: lisinopriL 20 MG TABLET PO (08:30)
--- NOTE | 2024-08-01 09:10 | P.PNIM_ITS ---
Progress Note: A&P Assessment and Plan (1) Hypertension: Code(s): I10 - Essential (primary) hypertension Status: Acute (2) Chest pain: Code(s): R07.9 - Chest pain, unspecified Status: Acute (3) Non-ST elevation [place] (NSTEMI): Code(s): I21.4 - Non-ST elevation (NSTEMI) myocardial infarction Status: Acute (4) Tobacco abuse: Code(s): Z72.0 - Tobacco use Status: Acute Plan (1) Non-ST elevation [place] (NSTEMI): Code(s): I21.4 - Non-ST elevation (NSTEMI) myocardial infarction Status: Acute Assessment and Plan: * Chest x-ray was negative * Troponin 0.012> 0.070>0.138 * Heart score-5, moderate risk * Patient started on heparin infusion for acute coronary syndrome * Cardiology consulted * Echocardiogram ordered * Continue cardiac monitoring * Continue aspirin 81 mg daily Patient does not want proceed cardiac catheterization and stent now. Appreciate cardiology consultation, Cardiology recommended discharge patient with aspirin, Plavix and statin, Cardiology will see patient office Now patient does have chest pain, palpitation. EKG does not show ST elevation (2) Hypertension: Code(s): I10 - Essential (primary) hypertension Status: Acute Assessment and Plan: * Blood pressures ranging 146/82 to 163/92 * Continue lisinopri 20 mg daily p.o. Blood pressure is not controlled in the target Will start hydrochlorothiazide 25 mg daily p.o. Follow-up with cardiology and PCP in office, adjust medication chronically l(3) Tobacco abuse: Code(s): Z72.0 - Tobacco use Status: Acute Assessment and Plan: * Current every day smoker, smokes 1 pack per day * Encourage smoking cessation Subjective Date/time seen: 08/01/24 09:10 Interval history: I saw examined patient today, patient denies chest pain, palpitation, headache, focal weakness, abdomen pain, nausea vomiting dysuria. Patient afebrile, blood pressure stable, labs reviewed, Exam Narrative: General: In no acute distress, well nourished Head: atraumatic, no encephalopathy Eyes:PERRLA, sclera clear ENT: moist mucous membranes, nasal passages clear Neck: supple, no JVD, no adenopathy, trachea midline Cardiac: Normal S1 and S2. Murmur noted. No gallops or friction rubs, peripheral pulses intact. Respiratory: Lungs clear to auscultation, no adventitious lung sounds, currently on room air Gastrointestinal: soft, non-distended, non-tender, normoactive bowel sounds. : voiding without difficulty. Extremities: moves all extremities well, no edema, good ROM, strength 5/5 Skin: clean, dry, intact. No wounds or lesions. Neuro: Alert and oriented x4, cranial nerves intact, no neuro deficits. Psych: normal mood, normal affect, interactive Objective Data Vital Signs Vital Signs: Vital Signs - 24 hr 07/31/24 21:10 07/31/24 21:15 07/31/24 21:27 Temperature 97.9 F Pulse Rate 90 90 Respiratory Rate 16 Blood Pressure 158/101 H Pulse Oximetry 98 98 Oxygen Delivery Room Air Room Air 07/31/24 21:27 07/31/24 22:52 08/01/24 01:13 Temperature 97.9 F Pulse Rate 81 86 79 Respiratory Rate 15 15 16 Blood Pressure 158/101 H 146/82 H 139/92 H Pulse Oximetry 98 99 98 Oxygen Delivery 08/01/24 02:19 08/01/24 03:55 08/01/24 04:00 Temperature 97.6 F Pulse Rate 75 68 67 Respiratory Rate 12 16 Blood Pressure 163/92 H 164/94 H Pulse Oximetry 100 97 Oxygen Delivery 08/01/24 06:00 08/01/24 08:04 Temperature 97.6 F Pulse Rate 72 68 Respiratory Rate 20 Blood Pressure 171/92 H Pulse Oximetry 98 Oxygen Delivery Meds/Results Medications: Active Medications Generic Name Dose Route Start Last Admin Trade Name Freq PRN Reason Stop Dose Admin Acetaminophen 650 mg 08/01/24 03:55 Acetaminophen 325 Mg Tablet PO Q4H PRN Mild Pain (1-3) or Fever Hydrocodone Bitart/Acetaminophen 1 tab 08/01/24 03:55 Hydrocodone/Acetaminophen (*Crx) 5-325 Mg Tablet PO Q4H PRN Moderate Pain (4-6) Aspirin 81 mg 08/01/24 09:00 08/01/24 08:29 Aspirin 81 Mg Enteric Tablet PO 81 mg DAILY KRYSTYNA Administration Heparin Sodium (Porcine) 4,000 units 08/01/24 03:05 Heparin Sodium 5,000 Units/Ml Vial IV PUSH PRN PRN aPTT less than 55 seconds Heparin Sodium (Porcine) 2,500 units 08/01/24 03:05 Heparin Sodium 5,000 Units/Ml Vial IV PUSH PRN PRN aPTT 55 - 70 seconds Heparin Sodium/Dextrose 25,000 units in 250 mls @ 7 mls/hr 08/01/24 01:50 08/01/24 02:09 Heparin Sodium/D5w 100 Units/Ml IV CONT 700 units/hr .Q24H KRYSTYNA 7 mls/hr Administration Protocol 700 UNITS/HR Lisinopril 20 mg 08/01/24 09:00 08/01/24 08:30 Lisinopril 20 Mg Tablet PO 20 mg DAILY KRYSTYNA Administration Morphine Sulfate 2 mg 08/01/24 03:55 Morphine Sulfate (*Crx) 2 Mg/Ml Inj IV PUSH Q4H PRN Pain Rated 7-10 Ondansetron HCl 4 mg 08/01/24 03:55 Ondansetron Inj 4 Mg/2 Ml Vial IV PUSH Q6H PRN Nausea And Vomiting Perflutren Lipid Microsphere 0 ml 08/01/24 03:54 Perflutren Lipid Microspheres 1.5 Ml Vial Diluted To 10 Ml Total Volume IV PUSH 08/04/24 03:54 ONCE PRN adequate visualization Protocol Radiology Results: ITS Impressions Chest X-Ray 07/31/24 22:44 IMPRESSION: No acute cardiopulmonary process. Labs Labs: Laboratory Results - last 24 hr 07/31/24 07/31/24 08/01/24 21:22 21:23 00:43 WBC 10.8 H RBC 4.51 L Hgb 13.7 L Hct 41.9 L MCV 92.9 MCH 30.4 MCHC 32.7 RDW 12.8 Plt Count 414 H MPV 9.4 Immature Gran % (Auto) 0.2 Neut % (Auto) 59.6 Lymph % (Auto) 28.4 [place] % (Auto) 6.9 Eos % (Auto) 4.3 Baso % (Auto) 0.6 Lymph # (Auto) 3.06 [place] # (Auto) 0.7 H Eos # (Auto) 0.5 H Baso # (Auto) 0.1 Abs Immat Gran (auto) 0.02 Absolute Neuts (auto) 6.4 Absolute Nucleated RBC 0.000 Nucleated RBC % 0.0 PT 13.1 INR 1.0 APTT 30.0 Sodium 137 Potassium 3.6 Chloride 103 Carbon Dioxide 24 Anion Gap 10 BUN 22 H Creatinine 1.17 Estim Creat Clear Calc 48 Estimated GFR > 60 Glucose 111 H Calcium 8.6 Magnesium 1.9 Total Bilirubin 0.3 AST 30 ALT 19 Alkaline Phosphatase 71 Troponin I < 0.012 0.070 H* D Total Protein 7.0 Albumin 4.0 Triglycerides Cholesterol LDL Cholesterol Direct HDL Direct Lipase 139 TSH Influenza A (RT-PCR) Negative Influenza B (RT-PCR) Negative RSV (RT-PCR) Negative SARS-CoV-2 RNA (RT-PCR) Negative Group A Strep (PCR) Not detected 08/01/24 03:58 WBC RBC Hgb Hct MCV MCH MCHC RDW Plt Count MPV Immature Gran % (Auto) Neut % (Auto) Lymph % (Auto) [place] % (Auto) Eos % (Auto) Baso % (Auto) Lymph # (Auto) [place] # (Auto) Eos # (Auto) Baso # (Auto) Abs Immat Gran (auto) Absolute Neuts (auto) Absolute Nucleated RBC Nucleated RBC % PT INR APTT Sodium Potassium Chloride Carbon Dioxide Anion Gap BUN Creatinine Estim Creat Clear Calc Estimated GFR Glucose Calcium Magnesium 1.9 Total Bilirubin AST ALT Alkaline Phosphatase Troponin I 0.138 H* D Total Protein Albumin Triglycerides 48 Cholesterol 179 LDL Cholesterol Direct 100 HDL Direct 57 Lipase TSH 2.440 Influenza A (RT-PCR) Influenza B (RT-PCR) RSV (RT-PCR) SARS-CoV-2 RNA (RT-PCR) Group A Strep (PCR)
[2024-08-01] MEDS: ATORVASTATIN 40 MG TABLET 80 MG PO (09:50)
[2024-08-01 10:06] LABS: Partial Thromboplastin Time 52.8 Seconds (22.3-36.8)
[2024-08-01] MEDS: HEPARIN SODIUM 5,000 UNITS/ML VIAL 4000 UNITS IV PUSH (11:12)
[2024-08-01 11:17] LABS: Hemoglobin A1C 5.7 % (<5.7)
[2024-08-01] MEDS: CLOPIDOGREL BISULFATE 300 MG TABLET 600 MG PO (11:45)
--- NOTE | 2024-08-01 12:06 | P.CONCA_ITS ---
Assessment and Plan Assessment and plan (1) Non-ST elevation [place] (NSTEMI): Code(s): I21.4 - Non-ST elevation (NSTEMI) myocardial infarction Status: Acute Plan 1. NSTEMI 2. Hypertension 3. Tobacco dependence 4. Noncompliance PLAN: -Had an extensive discussion with patient regarding NSTEMI and management strategies. Discussed LHC, procedure details, risks vs benefits, alternative management strategies. Discussed with patient that if he would need PCI, he would need to be fully compliant with DAPT, otherwise if he cannot reliably take his medications then he would not be a candidate for stents. Patient's noncompliance is of great concern, and I am not sure if he will be compliant with DAPT. After patient centered discussion regarding management strategies and what his goals of care are, we came to mutual decision that we will treat medically for NSTEMI for now with ASA, Plavix, high-intensity statin with close outpatient follow-up. Echocardiogram showed normal LVEF without appreciable wall motion abnormality which is reassuring. -His echocardiogram shows heavily calcified aortic valve, which was not well seen. Does have systolic murmur on examination. Given his age, concern for possible bicuspid aortic valve. He reportedly was told he had a valve issue in the past (discussed it with RN, but denied any past cardiac issues to me). We have none of his prior records. Recommend outpatient cardiac CT for better evaluation of his aortic valve. From my standpoint, he can be discharge home today. Will arrange close outpatient follow up in my office. Recommendations and plan discussed with Hospitalist. History of Present Illness History of Present Illness Consult date/time: 08/01/24 12:06 Requesting physician: Katrin Diaz APRN Consult reason: chest pain Reason For Visit: CP, NSTEMI Narrative: Eugene is a 63 year old male with hypertension, tobacco dependence who presented to [facility] with chest pain. Had sudden onset shortness of breath and substernal chest tightness that occurred when laying down. Persistent until he came to the ED, and resolved while in the ED. No prior history of chest pain. He cannot tell me exactly how long the chest pain lasted, first stated that it lasted for a few minutes, then stated that it was still ongoing when in the ambulance. He is currently chest pain free. Workup in the ED shows EKGs with sinus rhythm, no ischemic changes. Troponins are <0.012, 0.070, 0.138. Difficult to obtain history from the patient as he answers a lot of the questions with I don't know. He denies any prior cardiac issues or history to me. However, the patient's RN told me that patient told her that he was told he had a valve issue a while back. Has not followed up with anyone. Ran out of his Lisinopril a while back and has not followed up with anyone to get it refilled. Did receive some care in the past at [facility], unclear how long ago. Patient tells me that he doesn't like to take medication, and has a hard time remembering to always take medications. Review of Systems 2 Review of Systems: All systems reviewed & are unremarkable except as noted in HPI and below (HPI) PMFSH Past Medical History Medical History Tobacco abuse Hypertension Carotid artery stenosis Social History Social History Smoking packs per day: 1 Smoking cigarettes per day: 20.0 Years smoked: 49 Smoking pack-years: 49.00 Smoking status: Current every day smoker Tobacco type: cigarettes Alcohol intake: current Drinks per week: 14 Substance use: current Substance use type: marijuana Last use: 07/31/2024 Do You Feel Safe in your Home?: Yes Lack of Transportation: YES Lack of Food: Never True Current Housing: I Have Housing Concerned About Future Housing: No Difficulty Paying Gas/Electric Bills: No Difficulty Paying for Meds: YES Currently Unemployed: No Education: High School Diploma/GED Difficulty w/ Childcare or Family Care: No Gender identity (if verbalized by the patient): Male Spiritual care concerns: No Meds Home Medications and Allergies Home Medications ?Medication ?Instructions ?Recorded ?Confirmed ?Type aspirin 81 mg tablet,delayed 81 mg PO DAILY 08/01/24 08/01/24 History release (Adult Low Dose Aspirin) lisinopril 20 mg tablet 20 mg PO DAILY 08/01/24 08/01/24 History Allergies Allergy/AdvReac Type Severity Reaction Status Date / Time gabapentin Allergy Other Verified 08/01/24 03:43 Vital Signs Vital Signs - 24 hr 07/31/24 21:10 07/31/24 21:15 07/31/24 21:27 Temperature 36.6 C Pulse Rate 90 90 Respiratory Rate 16 Blood Pressure 158/101 H Pulse Oximetry 98 98 Oxygen Delivery Room Air Room Air 07/31/24 21:27 07/31/24 22:52 08/01/24 01:13 Temperature 36.6 C Pulse Rate 81 86 79 Respiratory Rate 15 15 16 Blood Pressure 158/101 H 146/82 H 139/92 H Pulse Oximetry 98 99 98 Oxygen Delivery 08/01/24 02:19 08/01/24 03:55 08/01/24 04:00 Temperature 36.4 C Pulse Rate 75 68 67 Respiratory Rate 12 16 Blood Pressure 163/92 H 164/94 H Pulse Oximetry 100 97 Oxygen Delivery 08/01/24 06:00 08/01/24 08:00 08/01/24 08:00 Temperature Pulse Rate 72 69 69 Respiratory Rate 20 Blood Pressure Pulse Oximetry 97 Oxygen Delivery Room Air 08/01/24 08:04 08/01/24 09:18 08/01/24 10:00 Temperature 36.4 C Pulse Rate 68 67 Respiratory Rate 20 Blood Pressure 171/92 H Pulse Oximetry 98 97 Oxygen Delivery Room Air 08/01/24 12:03 Temperature 36.7 C Pulse Rate 84 Respiratory Rate 18 Blood Pressure 148/88 H Pulse Oximetry 97 Oxygen Delivery Exam 2 Const: General: no acute distress Other: Wearing street clothes Eyes: General: appearance normal, both eyes and all related structures S clera: sclerae normal Resp: Effort & Inspection: normal respiratory effort Cardio: Rate: regular rate Rhythm: regular rhythm Other: 3/6 systolic murmur heard best at RUSB Skin: General skin exam: normal color Neuro: Speech: normal speech Psych: Mental Status: mental status grossly normal Results Labs and Meds 07/31/24 21:22 07/31/24 21:22 Lab results: Cardiac Enzymes 07/31/24 08/01/24 08/01/24 Range/Units 21:22 00:43 03:58 AST 30 (17-59) U/L Troponin I < 0.012 0.070 H* D 0.138 H* D (0.000-0.034) ng/mL Coagulation 07/31/24 08/01/24 Range/Units 21:22 08:11 PT 13.1 (11.1-14.7) Seconds APTT 30.0 52.8 H (22.3-36.8) Seconds Lipids 08/01/24 Range/Units 03:58 Triglycerides 48 (<150) mg/dL Cholesterol 179 (0-200) mg/dL CBC 07/31/24 Range/Units 21:22 WBC 10.8 H (4.5-10.0) K/mm3 RBC 4.51 L (4.6-6.20) M/mm3 Hgb 13.7 L (14.0-18.0) g/dL Hct 41.9 L (42.0-52.0) % Plt Count 414 H (150-375) k/mm3 Lymph # (Auto) 3.06 (0.9-3.2) K/mm3 Mineral # (Auto) 0.7 H (0.1-0.6) K/mm3 Eos # (Auto) 0.5 H (0-0.3) K/mm3 Baso # (Auto) 0.1 (0.0-0.1) K/mm3 Comprehensive Metabolic Panel 07/31/24 Range/Units 21:22 Sodium 137 (137-145) mmol/L Potassium 3.6 (3.4-5.0) mmol/L Chloride 103 (98-107) mmol/L Carbon Dioxide 24 (22-30) mmol/L BUN 22 H (9-20) mg/dL Creatinine 1.17 (0.7-1.3) mg/dL Glucose 111 H (65-110) mg/dL Calcium 8.6 (8.4-10.2) mg/dL AST 30 (17-59) U/L ALT 19 (6-50) U/L Alkaline Phosphatase 71 (38-126) U/L Total Protein 7.0 (6.3-8.2) g/dL Albumin 4.0 (3.5-5.1) g/dL Intake and Output 07/31/24 08/01/24 08/01/24 23:59 07:59 15:59 Intake Total 62 Balance 62 Intake: IV 62 Heparin Sod/D5w 100 Units/ml 25 62 ,000 units In 250 ml @ 700 UNITS/HR 7 mls/hr IV CONT .Q24H KRYSTYNA Rx#:[id number] Other: # Unmeasured Voids 1 2 Patient Weight 08/01/24 23:59 Weight 59.2 kg
--- NOTE | 2024-08-01 12:26 | P.DS_ITS ---
DS: Admitting Diagnosis Discharge Date 08/01/24 Admitting Diagnosis (1) Hypertension: Code(s): I10 - Essential (primary) hypertension Status: Acute (2) Chest pain: Code(s): R07.9 - Chest pain, unspecified Status: Acute (3) Non-ST elevation PR (NSTEMI): Code(s): I21.4 - Non-ST elevation (NSTEMI) myocardial infarction Status: Acute (4) Tobacco abuse: Code(s): Z72.0 - Tobacco use Status: Acute DS: Discharge Diagnosis Discharge Diagnosis (1) Hypertension: Code(s): I10 - Essential (primary) hypertension Status: Acute (2) Chest pain: Code(s): R07.9 - Chest pain, unspecified Status: Acute (3) Non-ST elevation PR (NSTEMI): Code(s): I21.4 - Non-ST elevation (NSTEMI) myocardial infarction Status: Acute (4) Tobacco abuse: Code(s): Z72.0 - Tobacco use Status: Acute DS: Summary Hospital Course Hospital Course: Per H&P, This is a 63-year-old male with a significant past medical history of carotid artery stenosis, hypertension, marijuana abuse, current every day smoker who presented to the hospital with complaints of chest pain and shortness of breath with exertion. Patient states that he was cleaning his house when he became SOB with chest pain. He states that he did have some nausea and vomiting over the past few days. He denies any recent sick contacts. He denies any fever, chills, nausea, vomiting, diarrhea, abdominal pain, chest pain, or shortness of breath right now. He is a current every day smoker and he reports smoking 1 pack per day. Workup in the hospital included a chest x-ray which was negative. Initial labs showed a white blood cell count of 10.8, hemoglobin 13.7, INR 1.0, blood sugar 111, magnesium 1.9, troponin 0.012> 0.070, lipase was normal at 139. Respiratory panel was negative for influenza a and B, RSV, COVID. Group base strep PCR was negative. EKG showed sinus rhythm with incomplete right bundle branch block with a rate of 75, QTC 435. Patient was started on a heparin infusion for acute coronary syndrome and given a dose of Toradol while in the ED. The following med issues have been addressed during hospitalization Non-ST elevation PR (NSTEMI): Code(s): I21.4 - Non-ST elevation (NSTEMI) myocardial infarction Status: Acute Assessment and Plan: * Chest x-ray was negative * Troponin 0.012> 0.070>0.138 * Heart score-5, moderate risk * Patient started on heparin infusion for acute coronary syndrome * Cardiology consulted * Echocardiogram ordered * Continue cardiac monitoring * Continue aspirin 81 mg daily Patient does not want proceed cardiac catheterization and stent now. Per Cardiology report, patient is also noncompliant with medications, and patient is not candidate for PCI if patient cannot take medication regularly. Appreciate cardiology consultation, Cardiology recommended discharge patient with aspirin, Plavix and statin, Cardiology will see patient office Now patient does have chest pain, palpitation. EKG does not show ST elevation Uncontrolled Hypertension: Code(s): I10 - Essential (primary) hypertension Status: Acute Assessment and Plan: * Blood pressures ranging 146/82 to 163/92 * Continue lisinopri 20 mg daily p.o. Blood pressure is not controlled in the target Will start hydrochlorothiazide 25 mg daily p.o. Follow-up with cardiology and PCP in office, adjust medication chronically Tobacco abuse: Code(s): Z72.0 - Tobacco use Status: Acute Assessment and Plan: * Current every day smoker, smokes 1 pack per day * Encourage smoking cessation Time Spent with Patient Time attestation: Total time spent providing and/or coordinating discharge services: Exam Narrative: General: In no acute distress, well nourished Head: atraumatic, no encephalopathy Eyes:PERRLA, sclera clear ENT: moist mucous membranes, nasal passages clear Neck: supple, no JVD, no adenopathy, trachea midline Cardiac: Normal S1 and S2. Murmur noted. No gallops or friction rubs, jeanne pheral pulses intact. Respiratory: Lungs clear to auscultation, no adventitious lung sounds, currently on room air Gastrointestinal: soft, non-distended, non-tender, normoactive bowel sounds. : voiding without difficulty. Extremities: moves all extremities well, no edema, good ROM, strength 5/5 Skin: clean, dry, intact. No wounds or lesions. Neuro: Alert and oriented x4, cranial nerves intact, no neuro deficits. Psych: normal mood, normal affect, interactive DS: Data Data Completed and Pending Labs on day of discharge: Labs from last 24 hours 08/01/24 08/01/24 08/01/24 08:11 03:58 03:57 WBC RBC Hgb Hct MCV MCH MCHC RDW Plt Count MPV Immature Gran % (Auto) Neut % (Auto) Lymph % (Auto) [place] % (Auto) Eos % (Auto) Baso % (Auto) Lymph # (Auto) [place] # (Auto) Eos # (Auto) Baso # (Auto) Abs Immat Gran (auto) Absolute Neuts (auto) Absolute Nucleated RBC Nucleated RBC % PT INR APTT 52.8 H Sodium Potassium Chloride Carbon Dioxide Anion Gap BUN Creatinine Estim Creat Clear Calc Estimated GFR Glucose Hemoglobin A1c 5.7 Calcium Magnesium 1.9 Total Bilirubin AST ALT Alkaline Phosphatase Troponin I 0.138 H* D Total Protein Albumin Triglycerides 48 Cholesterol 179 LDL Cholesterol Direct 100 HDL Direct 57 Lipase TSH 2.440 Influenza A (RT-PCR) Influenza B (RT-PCR) RSV (RT-PCR) SARS-CoV-2 RNA (RT-PCR) Group A Strep (PCR) 08/01/24 07/31/24 07/31/24 00:43 21:23 21:22 WBC 10.8 H RBC 4.51 L Hgb 13.7 L Hct 41.9 L MCV 92.9 MCH 30.4 MCHC 32.7 RDW 12.8 Plt Count 414 H MPV 9.4 Immature Gran % (Auto) 0.2 Neut % (Auto) 59.6 Lymph % (Auto) 28.4 [place] % (Auto) 6.9 Eos % (Auto) 4.3 Baso % (Auto) 0.6 Lymph # (Auto) 3.06 [place] # (Auto) 0.7 H Eos # (Auto) 0.5 H Baso # (Auto) 0.1 Abs Immat Gran (auto) 0.02 Absolute Neuts (auto) 6.4 Absolute Nucleated RBC 0.000 Nucleated RBC % 0.0 PT 13.1 INR 1.0 APTT 30.0 Sodium 137 Potassium 3.6 Chloride 103 Carbon Dioxide 24 Anion Gap 10 BUN 22 H Creatinine 1.17 Estim Creat Clear Calc 48 Estimated GFR > 60 Glucose 111 H Hemoglobin A1c Calcium 8.6 Magnesium 1.9 Total Bilirubin 0.3 AST 30 ALT 19 Alkaline Phosphatase 71 Troponin I 0.070 H* D < 0.012 Total Protein 7.0 Albumin 4.0 Triglycerides Cholesterol LDL Cholesterol Direct HDL Direct Lipase 139 TSH Influenza A (RT-PCR) Negative Influenza B (RT-PCR) Negative RSV (RT-PCR) Negative SARS-CoV-2 RNA (RT-PCR) Negative Group A Strep (PCR) Not detected Discharge Plan Discharge Attending physician on discharge: Yolanda Buckner Consulting providers: Petra Leslie Discharging Clinician: Yolanda Buckner Anticipated Discharge Date/Time: 08/01/24 12:29 Patient Disposition: Home, Self-Care Activity: as tolerated Diet: as tolerated and heart healthy Patient Instructions: Antibiotic Form, Blood Thinners (GEN) Patient Language: Slovak Stand Alone Forms: General Discharge Information Follow-up/Referrals: Petra Leslie MD [Physician] - (Patient needs to see software project engineer at scheduled appointment) Venkata Mcginnis MD [Primary Care Provider] - (Patient needs to see primary care doctor in 1 week) Discharge Medications: New clopidogrel 75 mg Tablet 75 mg PO QAM Qty: 60 0RF hydrochlorothiazide 25 mg tablet 25 mg PO DAILY Qty: 30 0RF atorvastatin 40 mg Tablet 80 mg PO DAILY Qty: 60 0RF Continued aspirin [Adult Low Dose Aspirin] 81 mg tablet,delayed release (DR/EC) 81 mg PO DAILY lisinopril 20 mg tablet 20 mg PO DAILY Qty: 60 0RF Date of admission: 08/01/24 02:43 Primary Care Provider: Venkata Mcginnis Admitting Provider: Mercy Iverson Attending physician on admission: Mercy Iverson Condition: Stable
--- NOTE | 2024-08-01 14:02 | PC.NURSE ---
Discharged home. This RN reviewed all discharge instructions with the patient including medications last dose given and when the next dose is due. Patient verbalizes understanding, denies further questions.
== END 2024-08-01 13:56 | disposition home or self-care (01) | DRG 282 ==
LOC: ANHED 08-01 01:57 → ANHIMU 08-01 04:44
PROVIDERS: Internal Medicine; Nurse Practitioner Acute Care; Admitting Provider Family Medicine; Emergency Provider Emergency Medicine; PCP Emergency Medicine; Visit Provider Hospitalist
DX: I21.4 Non-ST elevation (NSTEMI) myocardial infarction (principal); I65.29 Occlusion and stenosis of unspecified carotid artery; I24.9 Acute ischemic heart disease, unspecified; I10 Essential (primary) hypertension; F12.10 Cannabis abuse, uncomplicated; F17.210 Nicotine dependence, cigarettes, uncomplicated; I45.10 Unspecified right bundle-branch block; Z91.148 Patient's other noncompliance with medication regimen for other reason; Z20.822 Contact with and (suspected) exposure to COVID-19; Z79.82 Long term (current) use of aspirin
CPT/HCPCS: 36415; 71045; 80053; 80061; 83036; 83690; 83735; 84443; 84484; 85025; 85610; 85730; 87637; 87651; 93005; 93306; 96374; 96375; 99285; A9270; J1644; J1885

== ENCOUNTER 2025-02-16 18:59 | Emergency (ER) | payer MEDICARE, OTHER, MEDICAID, SELFPAY ==
--- NOTE | ~2025-02-16 | XR_ITS ---
XR hand RT min 3V 02/16/2025 19:20 INDICATION: Right hand pain PROCEDURE: 3 views right hand COMPARISON: 02/24/2022 FINDINGS: Fracture, dislocation or subluxation is not identified. There is severe polyarticular osteoarthritis, most advanced at the second and third metacarpophalangeal joints. The soft tissues appear within normal limits. No foreign bodies are identified. There is partial amputation of the fourth digit at the distal phalanx. IMPRESSION: 1: NO ACUTE BONE OR JOINT ABNORMALITY IDENTIFIED. Reviewed, dictated and finalized at location O.
[2025-02-16 19:10] VITALS: BP 130/77; PULSE 82; RESP 18; TEMP 36.8; O2SAT 97
--- NOTE | 2025-02-16 19:19 | ED_ITS ---
HPI - Extremity Injury (Upper) General Chief Complaint: Extremity Injury, Upper Stated Complaint: Right Hand Pain Time Seen by Provider: 02/16/25 19:19 Source: patient Mode of arrival: ambulatory Limitations: no limitations History of Present Illness HPI narrative: 64 yo M presents with pain and swelling to L hand. Pt was carrying large, heavy doot and he tripped and door smashed hand. ROM and distal NV intact. has partial amputation to R 4th finger from previous injury. All systems reviewed and negative except as noted above. Related Data Home Medications ?Medication ?Instructions ?Recorded ?Confirmed ?Last Taken ?Type aspirin 81 mg tablet,delayed 81 mg PO DAILY 08/01/24 0 08/01/24 Unknown History release (Adult Low Dose Aspirin) Allergies Allergy/AdvReac Type Severity Reaction Status Date / Time gabapentin Allergy Other Verified 02/16/25 19:10 REPLACED BY [facility] Past Medical History Medical History Tobacco abuse Hypertension Carotid artery stenosis Social History Social History Smoking packs per day: 1 Smoking cigarettes per day: 20.0 Years smoked: 49 Smoking pack-years: 49.00 Smoking status: Current every day smoker Tobacco type: cigarettes Alcohol intake: current Drinks per week: 14 Substance use: current Substance use type: marijuana Last use: 07/31/2024 Do You Feel Safe in your Home?: Yes Lack of Transportation: YES Lack of Food: Never True Current Housing: I Have Housing Concerned About Future Housing: No Difficulty Paying Gas/Electric Bills: No Difficulty Paying for Meds: YES Currently Unemployed: No Education: High School Diploma/GED Difficulty w/ Childcare or Family Care: No Gender identity (if verbalized by the patient): Male Spiritual care concerns: No Comments At time of signature, agree with nursing past medical, surgical, social and family history. There is no relevant family history pertinent to the presenting complaint. Exam Narrative: GENERAL: This is a well-nourished, well-developed patient, in no apparent distress. HEAD: normocephalic, atraumatic. EYES: PERRL. Sclera clear/white. Vision is grossly intact. EARS: External ears normal NOSE: External nose normal NECK: Neck supple, non-tender without lymphadenopathy, masses or thyromegaly. CARDIOVASCULAR: Regular rate and rhythm without murmurs, gallops, or rubs. RESPIRATORY: Clear to auscultation. Breath sounds equal bilaterally. No wheezes, rales, or rhonchi. SKIN: warm, Dry, intact with no suspicious lesions or rash, good texture and turgor. NEURO: awake, alert, and oriented to person, place and time. There were no obvious focal neurologic abnormalities. EXTREMITIES: tenderness to proximal phalanx and PIP of middle and ring finger to R hand with bruising and swelling Course Course Level of Care: Express Care Visit Vital Signs Vital signs: Vital Signs Temperature 36.8 C 02/16/25 19:10 Pulse Rate 82 02/16/25 19:10 Respiratory Rate 18 02/16/25 19:10 Blood Pressure 130/77 02/16/25 19:10 Pulse Oximetry 97 02/16/25 19:10 Oxygen Delivery Room Air 02/16/25 19:10 Temperature 36.8 C 02/16/25 19:10 Pulse Rate 82 02/16/25 19:10 Respiratory Rate 18 02/16/25 19:10 Blood Pressure 130/77 02/16/25 19:10 Pulse Oximetry 97 02/16/25 19:10 Oxygen Delivery Room Air 02/16/25 19:10 reviewed MDM - Extremity Injury (Upper) MDM Narrative Medical decision making narrative: x-ray right hand negative for fracture. Discussed results with patient. Patient placed in finger splint by Marlyn. Recommend follow-up with primary care physician if pain and swelling not improving. CMS intact at discharge. Differential Diagnosis Differential diagnosis: Likely finger sprain, dislocation of finger, fracture of hand and other ( Finger fracture) Imaging Data My impression: agree with radiologist Radiologist's impression: XR hand RT min 3V 02/16/2025 19:20 INDICATION: Right hand pain PROCEDURE: 3 views right hand COMPARISON: 02/24/2022 FINDINGS: Fracture, dislocation or subluxation is not identified. There is severe polyarticular osteoarthritis, most advanced at the second and third metacarpophalangeal joints. The soft tissues appear within normal limits. No foreign bodies are identified. There is partial amputation of the fourth digit at the distal phalanx. IMPRESSION: 1: NO ACUTE BONE OR JOINT ABNORMALITY IDENTIFIED. Discharge Plan Discharge Clinical Impression: Contusion of multiple sites of right hand and fingers Qualifiers: Encounter type: initial encounter Qualified Code(s): S60.221A - Contusion of right hand, initial encounter Patient Disposition: Home Condition: Stable Instructions: Contusion in Adults (ED) Additional Instructions: the x-ray of your right hand was negative for fracture. Take Tylenol every 6-8 hours as needed for pain. Elevate when at rest. Apply ice as needed for pain. Follow-up with your primary care physician as needed. Patient Language: Czech Prescriptions: No Action aspirin [Adult Low Dose Aspirin] 81 mg tablet,delayed release (DR/EC) 81 mg PO DAILY atorvastatin 40 mg Tablet 80 mg PO DAILY Qty: 60 0RF clopidogrel 75 mg Tablet 75 mg PO QAM Qty: 60 0RF hydrochlorothiazide 25 mg tablet 25 mg PO DAILY Qty: 30 0RF lisinopril 20 mg Tablet 20 mg PO DAILY Qty: 60 0RF Follow-up/Referrals: Venkata Mcginnis MD [Primary Care Provider, [facility]] Time of Disposition: 19:36
== END 2025-02-16 19:40 | disposition home or self-care (01) ==
PROVIDERS: Emergency Provider Nurse Practitioner Family; PCP Emergency Medicine
DX: S60.221A Contusion of right hand, initial encounter (principal); I10 Essential (primary) hypertension; F17.210 Nicotine dependence, cigarettes, uncomplicated; W01.0XXA Fall on same level from slipping, tripping and stumbling without subsequent striking against object, initial encounter
CPT/HCPCS: 73130; 99213; G0463